=== PATIENT | male | born 1960 | race African-American/Black ===

== ENCOUNTER 2017-10-13 08:59 | Inpatient (IN) | payer OTHER ==
[2017-10-13 09:57] VITALS: BMI 22.3
--- NOTE | 2017-10-13 10:59 | HP ---
CIWA Score - CIWA Score Nausea/Vomitin-Mild Nausea/No Vomiting Muscle Tremors: 3 Anxiety: 3 Agitation: 4-Moderately Restless Paroxysmal Sweats: 3 Orientation: 0-Oriented Tacttile Disturbances: 0-None Auditory Disturbances: 0-None Visual Disturbances: 0-None Headache: 0-None Present CIWA-Ar Total Score: 14 Admission ROS BHS - HPI Chief Complaint: I am here to get some help and give myself a chance to start the new year better and healthy. Allergies/Adverse Reactions: Allergies Allergy/AdvReac Type Severity Reaction Status Date / Time Fish Containing Products Allergy Verified 10/13/17 09:33 History of Present Illness: pt is a 56yr old male with a history of alcohol dependence seeking detox for treatment. Exam Limitations: No Limitations - Ebola screening Have you traveled outside of the country in the last 21 days: No Have you had contact with anyone from an Ebola affected area: No Have you been sick,other than usual withdrawal symptoms: No Do you have a fever: No - Review of Systems Constitutional: Chills, Loss of Appetite, Changes in sleep, Unintentional Wgt. Loss EENT: reports: Blurred Vision, Dental Problems, Other (uses dentures but lost them) Respiratory: reports: No Symptoms reported Cardiac: reports: No Symptoms Reported GI: reports: Constipated, Diarrhea, Nausea, Poor Appetite, Poor Fluid Intake : reports: No Symptoms Reported Musculoskeletal: reports: Back Pain, Joint Pain Integumentary: reports: Flushing, Sweating Neuro: reports: Headache, Tingling, Tremors Endocrine: reports: Flushing, Intolerance to Cold, Intolerance to Heat Hematology: reports: No Symptoms Reported Psychiatric: reports: Judgement Intact, Mood/Affect Appropiate, Orientated x3, Agitated, Anxious Other Systems: Reviewed and Negative Patient History - Patient Medical History Hx Anemia: No Hx Asthma: No Hx Chronic Obstructive Pulmonary Disease (COPD): No Hx Cancer: No Hx Cardiac Disorders: No Hx Congestive Heart Failure: No Hx Hypertension: No Hx Hypercholesterolemia: No Hx Pacemaker: No HX Cerebrovascular Accident: No Hx Seizures: No Hx Dementia: No Hx Diabetes: Yes ([id number]) Hx Gastrointestinal Disorders: No Hx Liver Disease: No Hx Genitourinary Disorders: No Hx Sexually Transmitted Disorders: No Hx Renal Disease (ESRD): No Hx Thyroid Disease: No Hx Human Immunodeficiency Virus (HIV): No (negative) Hx Hepatitis C: No (negative) Hx Depression: Yes Hx Suicide Attempt: No (denies) Hx Bipolar Disorder: No Hx Schizophrenia: No - Patient Surgical History Past Surgical History: No Hx Neurologic Surgery: No Hx Cataract Extraction: No Hx Cardiac Surgery: No Hx Lung Surgery: No Hx Breast Surgery: No Hx Breast Biopsy: No Hx Abdominal Surgery: No Hx Appendectomy: No Hx Cholecystectomy: No Hx Genitourinary Surgery: No Hx Section: No Hx Orthopedic Surgery: No Anesthesia Reaction: No - PPD History Previous Implant?: Yes Documented Results: Negative w/o proof Implanted On Prior R Admission?: Yes PPD to be Administered?: Yes - Reproductive History Patient is a Female of Child Bearing Age (11 -55 yrs old): No - Smoking Cessation Smoking history: Current every day smoker Have you smoked in the past 12 months: Yes Aproximately how many cigarettes per day: 10 Cigars Per Day: 0 Hx Chewing Tobacco Use: No Initiated information on smoking cessation: Yes 'Breaking Loose' booklet given: 10/13/17 - Substance & Tx. History Hx Alcohol Use: Yes Substance Use Type: Alcohol Hx Substance Use Treatment: Yes (last detox [facility] 2015) - Substances Abused Alcohol Route: Oral Frequency: Daily Amount used: MALT LIQUOUR(1 quart) Age of first use: 16 Date of Last Use: 10/13/17 Heroin Route: Inhalation Frequency: Daily Amount used: $50 Age of first use: 30 Date of Last Use: 10/11/17 Family Disease History - Family Disease History Family Disease History: CA: Father (), Mother () Admission Physical Exam S - Vital Signs Vital Signs: Vital Signs - 24 hr 10/13/17 09:32 Temperature 96.2 F L Pulse Rate 73 Respiratory 20 Rate Blood Pressure 130/88 - Physical General Appearance: Yes: Appropriately Dressed, Moderate Distress, Tremorous, Irritable, Sweating, Anxious HEENTM: Yes: Hearing grossly Normal, Normal Voice, Rhinorrhea Respiratory: Yes: Lungs Clear, Normal Breath Sounds, No Respiratory Distress Neck: Yes: No masses,lesions,Nodules Breast: Yes: Within Normal Limits Cardiology: Yes: Regular Rhythm, Regular Rate, S1, S2 Abdominal: Yes: Normal Bowel Sounds, Non Tender, Soft Genitourinary: Yes: Within Normal Limits Back: Yes: Normal Inspection Musculoskeletal: Yes: full range of Motion Extremities: Yes: Normal Capillary Refill, Normal Inspection, Tremors Neurological: Yes: Fully Oriented, Alert, Normal Response Integumentary: Yes: Normal Color Lymphatic: Yes: Within Normal Limits - Diagnostic (1) Alcohol dependence with uncomplicated withdrawal Current Visit: Yes Status: Chronic (2) Nicotine dependence Current Visit: Yes Status: Chronic Qualifiers: Nicotine product type: cigarettes (3) Diabetes mellitus Current Visit: No Status: Chronic Qualifiers: Diabetes mellitus type: type 2 Diabetes mellitus complication status: without complication Diabetes mellitus custodial insulin use: without laser beam machine operator use Qualified Code(s): E11.9 - Type 2 diabetes mellitus without complications Cleared for Admission [facility] - Detox or Rehab [facility] Level of Care: Medically Managed Detox Regimen/Protocol: Librium [facility] Breath Alcohol Content Breath Alcohol Content: 0 Urine Drug Screen - Results Drug Screen Negative: Yes
[2017-10-13] MEDS ORDERED: NICOTINE POLACRILEX 4 MG GUM BC PRN (11:00)
[2017-10-13] MEDS ORDERED: MAGNESIUM CITRATE 300 ML BOTTLE PO PRN (11:00)
[2017-10-13] MEDS ORDERED: guaiFENesin/D-METHORPHAN HB 10 ML UNIT-DOSE CUPS PO PRN (11:00)
[2017-10-13] MEDS ORDERED: LOPERAMIDE HCL 2 MG CAPSULE PO PRN (11:00)
[2017-10-13] MEDS ORDERED: MAGNESIUM HYDROX 2400MG/30ML ORAL SUSPENSION 30 ML CUP PO PRN (11:00)
[2017-10-13] MEDS ORDERED: P-EPHED 60MG/TRIPROLIDI 2.5MG TABLET PO PRN (11:00)
[2017-10-13] MEDS ORDERED: MENTHOL/PHENOL 1 EACH UD MM PRN (11:00)
[2017-10-13] MEDS ORDERED: hydrOXYzine PAMOATE 50 MG CAPSULE (FP) PO PRN (11:00)
[2017-10-13] MEDS ORDERED: chlordiazePOXIDE HCL 25 MG CAPSULE PO ONE (11:00)
[2017-10-13] MEDS ORDERED: ACETAMINOPHEN 325 MG TABLET (FP) PO PRN (11:00)
[2017-10-13] MEDS ORDERED: chlordiazePOXIDE HCL 25 MG CAPSULE PO PRN (11:00)
[2017-10-13] MEDS ORDERED: IBUPROFEN 400 MG TABLET (FP) PO PRN (11:00)
[2017-10-13] MEDS ORDERED: MAG HYDROX/AL HYDROX/SIMETH 30 ML UNIT-DOSE CUP PO PRN (11:00)
[2017-10-13] MEDS ORDERED: chlordiazePOXIDE HCL 25 MG CAPSULE ONE (14:04)
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
--- NOTE | 2017-10-13 16:56 | EKG ---
Test Reason : Blood Pressure : / mmHG Vent. Rate : 070 BPM Atrial Rate : 070 BPM P-R Int : 152 ms QRS Dur : 088 ms QT Int : 398 ms P-R-T Axes : 080 059 057 degrees QTc Int : 429 ms NORMAL SINUS RHYTHM VOLTAGE CRITERIA FOR LEFT VENTRICULAR HYPERTROPHY ABNORMAL ECG NO PREVIOUS ECGS AVAILABLE Confirmed by DYLAN RIZZO MD ([id number]) on 10/13/2017 4:56:01 PM Referred By: Confirmed By:DYLAN RIZZO MD
[2017-10-13] MEDS: chlordiazePOXIDE HCL 25 MG CAPSULE PO SCH ×2 (18:09→22:25)
[2017-10-13 19:31] LABS: URINE APPEARANCE CLEAR; URINE BILIRUBIN NEGATIVE (NEGATIVE); URINE BLOOD NEGATIVE (NEGATIVE); URINE COLOR LTYELLOW; URINE GLUCOSE (UA) NEGATIVE (NEGATIVE); URINE KETONE NEGATIVE (NEGATIVE); URINE LEUK ESTERASE NEGATIVE (NEGATIVE); URINE NITRITE NEGATIVE (NEGATIVE); URINE PROTEIN NEGATIVE (NEGATIVE); URINE UROBILINOGEN NEGATIVE mg/dL (0.2-1.0)
[2017-10-13] MEDS: THIAMINE HCL 100 MG TABLET (FP) PO SCH (22:25)
[2017-10-13] MEDS: ZOLPIDEM TARTRATE 5 MG TABLET PO PRN (22:27)
[2017-10-13 22:39] LABS: URINE LEUK ESTERASE Negative (NEGATIVE)
[2017-10-14] MEDS: chlordiazePOXIDE HCL 25 MG CAPSULE PO SCH ×4 (05:37→22:25)
[2017-10-14] MEDS: PRENATAL VITAMINS W/ FOLIC ACID TABLET (FP) PO SCH (10:39)
[2017-10-14] MEDS: NICOTINE 21 MG/24 HOURS TOPICAL PATCH TD SCH (10:40)
[2017-10-14 11:29] LABS: MCH 28.4 pg (25.7-33.7); MCHC 31.5 g/dl (32.0-35.9); MEAN CELL VOLUME 89.9 fl (80-96); MEAN PLT VOLUME 10.1 fl (7.5-11.1); PLATELET COUNT 168 K/MM3 (134-434); WHITE BLOOD COUNT 4.8 K/mm3 (4.0-10.0)
[2017-10-14 11:38] LABS: ALBUMIN 3.2 g/dl (3.4-5.0); ALK PHOS 101 U/L (45-117); ANION GAP 5 (8-16); BILIRUBIN,TOTAL 0.2 mg/dL (0.2-1.0); CALCIUM 8.7 mg/dL (8.5-10.1); CO2 27 mmol/L (21-32); CREATININE 0.8 mg/dL (0.7-1.3); GLUCOSE,RANDOM 100 mg/dL (74-106); SGOT/AST 8 U/L (15-37); SGPT/ALT 12 U/L (12-78); TOT PROT 6.5 g/dl (6.4-8.2)
--- NOTE | 2017-10-14 16:23 | PN ---
[facility] CIWA - CIWA Score Nausea/Vomitin Muscle Tremors: 4-Moderate,w/Arms Extend Anxiety: 3 Agitation: 3 Paroxysmal Sweats: 3 Orientation: 0-Oriented Tacttile Disturbances: 1-Very Mild Itch/Numbness Auditory Disturbances: 0-None Visual Disturbances: 0-None Headache: 0-None Present CIWA-Ar Total Score: 17 S Progress Note (SOAP) Subjective: Sweating, tremor, chills, diarrhea Objective: 10/14/17 16:21 Last Vital Signs Temp Pulse Resp BP Pulse Ox 97.2 F L 67 16 147/94 10/14/17 14:11 10/14/17 14:11 10/14/17 14:11 10/14/17 14:11 Laboratory Tests 10/13/17 10/13/17 10/14/17 09:49 18:00 05:36 WBC RBC Hgb Hct MCV MCH MCHC RDW Plt Count MPV Sodium Potassium Chloride Carbon Dioxide Anion Gap BUN Creatinine Creat Clearance w eGFR POC Glucometer 113 107 Random Glucose Calcium Total Bilirubin AST ALT Alkaline Phosphatase Total Protein Albumin Urine Color Ltyellow Urine Appearance Clear Urine pH 6.0 Ur Specific [place] 1.016 Urine Protein Negative Urine Glucose (UA) Negative Urine Ketones Negative Urine Blood Negative Urine Nitrite Negative Urine Bilirubin Negative Urine Urobilinogen Negative Ur Leukocyte Esterase Negative RPR Titer 10/14/17 10/14/17 10/14/17 07:45 07:45 07:45 WBC 4.8 RBC 4.21 Hgb 11.9 Hct 37.9 MCV 89.9 MCH 28.4 MCHC 31.5 L RDW 15.0 Plt Count 168 MPV 10.1 Sodium 143 Potassium 4.0 Chloride 111 H Carbon Dioxide 27 Anion Gap 5 L BUN 14 Creatinine 0.8 Creat Clearance w eGFR > 60 POC Glucometer Random Glucose 100 Calcium 8.7 Total Bilirubin 0.2 AST 8 L D ALT 12 D Alkaline Phosphatase 101 D Total Protein 6.5 Albumin 3.2 L Urine Color Urine Appearance Urine pH Ur Specific [place] Urine Protein Urine Glucose (UA) Urine Ketones Urine Blood Urine Nitrite Urine Bilirubin Urine Urobilinogen Ur Leukocyte Esterase RPR Titer Nonreactive Labs noted Assessment: 10/14/17 16:22 Withdrawal symptoms Plan: Continue detox Encouraged to drink lots of water for hydration
[2017-10-14] MEDS: THIAMINE HCL 100 MG TABLET (FP) PO SCH (22:25)
[2017-10-14] MEDS: ZOLPIDEM TARTRATE 5 MG TABLET PO PRN (22:27)
[2017-10-15] MEDS: chlordiazePOXIDE HCL 25 MG CAPSULE PO SCH (05:34)
[2017-10-15] MEDS: NICOTINE 21 MG/24 HOURS TOPICAL PATCH TD SCH (10:25)
[2017-10-15] MEDS: PRENATAL VITAMINS W/ FOLIC ACID TABLET (FP) PO SCH (10:25)
--- NOTE | 2017-10-15 11:48 | PN ---
[facility] CIWA - CIWA Score Nausea/Vomitin-No Nausea/No Vomiting Muscle Tremors: 3 Anxiety: 4-Mod. Anxious/Guarded Agitation: 4-Moderately Restless Paroxysmal Sweats: 2 Orientation: 0-Oriented Tacttile Disturbances: 2-Mild Itch/Numbness/Burn Auditory Disturbances: 1-Very Mild Visual Disturbances: 0-None Headache: 0-None Present CIWA-Ar Total Score: 16 S Progress Note (SOAP) Subjective: Tremors, Anxious, Diarrhea. Objective: PT. A & O X 3, OBSERVED AMBULATING ON UNIT. NO ACUTE DISTRESS. 10/15/17 11:46 Vital Signs Temperature 96.8 F L 10/15/17 09:15 Pulse Rate 66 10/15/17 09:15 Respiratory Rate 18 10/15/17 09:15 Blood Pressure 141/88 10/15/17 09:15 O2 Sat by Pulse Oximetry (%) Laboratory Tests 10/13/17 10/13/17 10/14/17 09:49 18:00 05:36 WBC RBC Hgb Hct MCV MCH MCHC RDW Plt Count MPV Sodium Potassium Chloride Carbon Dioxide Anion Gap BUN Creatinine Creat Clearance w eGFR POC Glucometer 113 107 Random Glucose Calcium Total Bilirubin AST ALT Alkaline Phosphatase Total Protein Albumin Urine Color Ltyellow Urine Appearance Clear Urine pH 6.0 Ur Specific [place] 1.016 Urine Protein Negative Urine Glucose (UA) Negative Urine Ketones Negative Urine Blood Negative Urine Nitrite Negative Urine Bilirubin Negative Urine Urobilinogen Negative Ur Leukocyte Esterase Negative RPR Titer 10/14/17 10/14/17 10/14/17 07:45 07:45 07:45 WBC 4.8 RBC 4.21 Hgb 11.9 Hct 37.9 MCV 89.9 MCH 28.4 MCHC 31.5 L RDW 15.0 Plt Count 168 MPV 10.1 Sodium 143 Potassium 4.0 Chloride 111 H Carbon Dioxide 27 Anion Gap 5 L BUN 14 Creatinine 0.8 Creat Clearance w eGFR > 60 POC Glucometer Random Glucose 100 Calcium 8.7 Total Bilirubin 0.2 AST 8 L D ALT 12 D Alkaline Phosphatase 101 D Total Protein 6.5 Albumin 3.2 L Urine Color Urine Appearance Urine pH Ur Specific [place] Urine Protein Urine Glucose (UA) Urine Ketones Urine Blood Urine Nitrite Urine Bilirubin Urine Urobilinogen Ur Leukocyte Esterase RPR Titer Nonreactive 10/15/17 05:08 WBC RBC Hgb Hct MCV MCH MCHC RDW Plt Count MPV Sodium Potassium Chloride Carbon Dioxide Anion Gap BUN Creatinine Creat Clearance w eGFR POC Glucometer 89 Random Glucose Calcium Total Bilirubin AST ALT Alkaline Phosphatase Total Protein Albumin Urine Color Urine Appearance Urine pH Ur Specific [place] Urine Protein Urine Glucose (UA) Urine Ketones Urine Blood Urine Nitrite Urine Bilirubin Urine Urobilinogen Ur Leukocyte Esterase RPR Titer LABS NOTED. Assessment: 10/15/17 11:47 WITHDRAWAL SYMPTOMS. Plan: CONTINUE DETOX. PRN IMMDODIUM FOR DIARRHEA. INCREASE DAILY PO FLUID INTAKE.
[2017-10-15] MEDS ORDERED: INSULIN (NOVOLOG) ASPART 100 UNITS/ML 10ML VIAL ONE (12:19)
[2017-10-15] MEDS: chlordiazePOXIDE 5 MG CAPSULE PO SCH ×2 (16:46→22:23)
[2017-10-15] MEDS: ZOLPIDEM TARTRATE 5 MG TABLET PO PRN (22:23)
[2017-10-15] MEDS: THIAMINE HCL 100 MG TABLET (FP) PO SCH (22:23)
[2017-10-16] MEDS: chlordiazePOXIDE 5 MG CAPSULE PO SCH ×2 (06:37→10:29)
[2017-10-16] MEDS: NICOTINE 21 MG/24 HOURS TOPICAL PATCH TD SCH (10:29)
[2017-10-16] MEDS: PRENATAL VITAMINS W/ FOLIC ACID TABLET (FP) PO SCH (10:29)
--- NOTE | 2017-10-16 12:21 | PN ---
S Progress Note (SOAP) Subjective: Diarrhea, Anxious. Objective: PT. A & O X 3, OBSERVED AMBULATING ON UNIT. NO ACUTE DISTRESS. 10/16/17 12:19 Vital Signs Temperature 96.8 F L 10/16/17 09:24 Pulse Rate 65 10/16/17 09:24 Respiratory Rate 17 10/16/17 09:24 Blood Pressure 116/82 10/16/17 09:24 O2 Sat by Pulse Oximetry (%) Laboratory Tests 10/13/17 10/13/17 10/14/17 09:49 18:00 05:36 WBC RBC Hgb Hct MCV MCH MCHC RDW Plt Count MPV Sodium Potassium Chloride Carbon Dioxide Anion Gap BUN Creatinine Creat Clearance w eGFR POC Glucometer 113 107 Random Glucose Calcium Total Bilirubin AST ALT Alkaline Phosphatase Total Protein Albumin Urine Color Ltyellow Urine Appearance Clear Urine pH 6.0 Ur Specific [place] 1.016 Urine Protein Negative Urine Glucose (UA) Negative Urine Ketones Negative Urine Blood Negative Urine Nitrite Negative Urine Bilirubin Negative Urine Urobilinogen Negative Ur Leukocyte Esterase Negative RPR Titer 10/14/17 10/14/17 10/14/17 07:45 07:45 07:45 WBC 4.8 RBC 4.21 Hgb 11.9 Hct 37.9 MCV 89.9 MCH 28.4 MCHC 31.5 L RDW 15.0 Plt Count 168 MPV 10.1 Sodium 143 Potassium 4.0 Chloride 111 H Carbon Dioxide 27 Anion Gap 5 L BUN 14 Creatinine 0.8 Creat Clearance w eGFR > 60 POC Glucometer Random Glucose 100 Calcium 8.7 Total Bilirubin 0.2 AST 8 L D ALT 12 D Alkaline Phosphatase 101 D Total Protein 6.5 Albumin 3.2 L Urine Color Urine Appearance Urine pH Ur Specific [place] Urine Protein Urine Glucose (UA) Urine Ketones Urine Blood Urine Nitrite Urine Bilirubin Urine Urobilinogen Ur Leukocyte Esterase RPR Titer Nonreactive 10/15/17 10/16/17 05:08 05:44 WBC RBC Hgb Hct MCV MCH MCHC RDW Plt Count MPV Sodium Potassium Chloride Carbon Dioxide Anion Gap BUN Creatinine Creat Clearance w eGFR POC Glucometer 89 97 Random Glucose Calcium Total Bilirubin AST ALT Alkaline Phosphatase Total Protein Albumin Urine Color Urine Appearance Urine pH Ur Specific [place] Urine Protein Urine Glucose (UA) Urine Ketones Urine Blood Urine Nitrite Urine Bilirubin Urine Urobilinogen Ur Leukocyte Esterase RPR Titer LABS NOTED. Assessment: 10/16/17 12:19 WITHDRAWAL SYMPTOMS. Plan: CONTINUE DETOX. INCREASE DAILY PO FLUID INTAKE. PRN IMMODIUM FOR DIARRHEA.
[2017-10-16] MEDS: chlordiazePOXIDE HCL 10 MG CAPSULE PO SCH ×2 (17:01→22:14)
[2017-10-16] MEDS: THIAMINE HCL 100 MG TABLET (FP) PO SCH (22:14)
[2017-10-16] MEDS: ZOLPIDEM TARTRATE 5 MG TABLET PO PRN (22:14)
[2017-10-17] MEDS: chlordiazePOXIDE HCL 10 MG CAPSULE PO SCH ×2 (05:31→11:01)
[2017-10-17 09:29] VITALS: BP 129/88; PULSE 72; TEMP 97.8
[2017-10-17] MEDS: PRENATAL VITAMINS W/ FOLIC ACID TABLET (FP) PO SCH (11:01)
[2017-10-17] MEDS: NICOTINE 21 MG/24 HOURS TOPICAL PATCH TD SCH (11:01)
--- NOTE | 2017-10-17 12:34 | DS ---
[facility] Detox Discharge Summary Admission Date: 10/13/17 Discharge Date: 10/17/17 - History Present History: Alcohol Dependence, Opioid Dependence Additional Comments: PATIENT GO[facility] [place] [facility] [place]C[facility]. PATIENT WAS DISCHARGED FROM DETOX UNIT IN STABLE MEDICAL CONDITION. Pertinent Past History: Type II DM, Depression, Nicotine Dependence. - Physical Exam Results Vital Signs: Vital Signs Temperature 97.8 F 10/17/17 09:28 Pulse Rate 72 10/17/17 09:28 Respiratory Rate 18 10/17/17 09:28 Blood Pressure 129/88 10/17/17 09:28 O2 Sat by Pulse Oximetry (%) Pertinent Admission Physical Exam Findings: WITHDRAWAL SYMPTOMS. Laboratory Tests 10/13/17 10/13/17 10/14/17 09:49 18:00 05:36 WBC RBC Hgb Hct MCV MCH MCHC RDW Plt Count MPV Sodium Potassium Chloride Carbon Dioxide Anion Gap BUN Creatinine Creat Clearance w eGFR POC Glucometer 113 107 Random Glucose Calcium Total Bilirubin AST ALT Alkaline Phosphatase Total Protein Albumin Urine Color Ltyellow Urine Appearance Clear Urine pH 6.0 Ur Specific [place] 1.016 Urine Protein Negative Urine Glucose (UA) Negative Urine Ketones Negative Urine Blood Negative Urine Nitrite Negative Urine Bilirubin Negative Urine Urobilinogen Negative Ur Leukocyte Esterase Negative RPR Titer 10/14/17 10/14/17 10/14/17 07:45 07:45 07:45 WBC 4.8 RBC 4.21 Hgb 11.9 Hct 37.9 MCV 89.9 MCH 28.4 MCHC 31.5 L RDW 15.0 Plt Count 168 MPV 10.1 Sodium 143 Potassium 4.0 Chloride 111 H Carbon Dioxide 27 Anion Gap 5 L BUN 14 Creatinine 0.8 Creat Clearance w eGFR > 60 POC Glucometer Random Glucose 100 Calcium 8.7 Total Bilirubin 0.2 AST 8 L D ALT 12 D Alkaline Phosphatase 101 D Total Protein 6.5 Albumin 3.2 L Urine Color Urine Appearance Urine pH Ur Specific [place] Urine Protein Urine Glucose (UA) Urine Ketones Urine Blood Urine Nitrite Urine Bilirubin Urine Urobilinogen Ur Leukocyte Esterase RPR Titer Nonreactive 10/15/17 10/16/17 10/17/17 05:08 05:44 05:30 WBC RBC Hgb Hct MCV MCH MCHC RDW Plt Count MPV Sodium Potassium Chloride Carbon Dioxide Anion Gap BUN Creatinine Creat Clearance w eGFR POC Glucometer 89 97 89 Random Glucose Calcium Total Bilirubin AST ALT Alkaline Phosphatase Total Protein Albumin Urine Color Urine Appearance Urine pH Ur Specific [place] Urine Protein Urine Glucose (UA) Urine Ketones Urine Blood Urine Nitrite Urine Bilirubin Urine Urobilinogen Ur Leukocyte Esterase RPR Titer LABS NOTED. - Treatment Hospital Course: Detox Protocol Followed, Detoxed Safely, Responded well, Discharged Condition Good Patient has Accepted a Rehab Referral to: PT GOING TO '[facility] [place] - Medication Discharge Medications: Ambulatory Orders Cholecalciferol (Vitamin D3) [Vitamin D3 -] 1,000 unit PO DAILY 07/02/15 Metformin HCl [Glucophage -] 850 mg PO DAILY 07/02/15 - Diagnosis (1) Alcohol dependence with uncomplicated withdrawal Current Visit: Yes Status: Acute (2) Nicotine dependence Current Visit: Yes Status: Chronic Qualifiers: Nicotine product type: cigarettes Substance use status: uncomplicated Qualified Code(s): F17.210 - Nicotine dependence, cigarettes, uncomplicated (3) Diabetes mellitus Current Visit: Yes Status: Chronic Qualifiers: Diabetes mellitus type: type 2 Diabetes mellitus complication status: without complication Diabetes mellitus fdc insulin use: without fdc use Qualified Code(s): E11.9 - Type 2 diabetes mellitus without complications (4) Substance induced mood disorder Current Visit: Yes Status: Acute (5) Substance-induced sleep disorder Current Visit: Yes Status: Acute (6) Opioid dependence Current Visit: Yes Status: Acute Qualifiers: Substance use status: uncomplicated Qualified Code(s): F11.20 - Opioid dependence, uncomplicated - AMA Did Patient Leave Against Medical Advice: No
== END 2017-10-17 10:10 | disposition home or self-care (01) | DRG 773 ==
LOC: YASAS 08:59 → Y3N 11:03
PROVIDERS: ADMIT Internal Medicine; ATTEND Internal Medicine
PROC: HZ2ZZZZ Detoxification Services for Substance Abuse Treatment (ICD-10-PCS; principal; 2017-10-13)
DX: F10.230 Alcohol dependence with withdrawal, uncomplicated (principal); F11.20 Opioid dependence, uncomplicated; F17.210 Nicotine dependence, cigarettes, uncomplicated; F19.24 Other psychoactive substance dependence with psychoactive substance-induced mood disorder; F19.282 Other psychoactive substance dependence with psychoactive substance-induced sleep disorder; F32.9 Major depressive disorder, single episode, unspecified; E11.9 Type 2 diabetes mellitus without complications; Z79.84 Long term (current) use of oral hypoglycemic drugs; Z91.013 Allergy to seafood
CPT/HCPCS: 36415; 80053; 81003; 85027; 86593; 93005; 93010

== ENCOUNTER 2018-06-15 09:27 | Inpatient (IN) | payer OTHER ==
--- NOTE | 2018-06-15 11:29 | HP ---
COWS - Scale Resting Pulse: 0= [place] 80 or Below Sweatin= Chills/Flushing Restless Observation: 1= Difficult to Sit Still Pupil Size: 0= Normal to Room Light Bone or Joint Aches: 1= Mild Discomfort Runny Nose/ Eye Tearin= Nasal Congestion GI Upset > 30mins: 2= Nausea/Diarrhea Tremor Observation: 2= Slight Tremor Visible Yawning Observation: 2= >3x During Session Anxiety or Irritability: 1=Feels Anxious/Irritable Goose Flesh Skin: 3=Piloerection COWS Score: 14 Admission ROS S - HPI Chief Complaint: "I am here for detox" Allergies/Adverse Reactions: Allergies Allergy/AdvReac Type Severity Reaction Status Date / Time Fish Containing Products Allergy Verified 06/15/18 10:42 History of Present Illness: 57 y/o male presents for detox from heroin and crack. Pt was last here last year, states he has been sober since then because he was in retirement and for about 6 months after leaving retirement before "I went back out". Hx of DM ("I take metformin on and off when I need it"). Denies any psych hx but states "I think I have Anxiety". Denies past nor current SI/HI. Exam Limitations: No Limitations - Ebola screening Have you traveled outside of the country in the last 21 days: No (N) Have you had contact with anyone from an Ebola affected area: No Have you been sick,other than usual withdrawal symptoms: No Do you have a fever: No - Review of Systems Constitutional: Changes in sleep, Unintentional Wgt. Loss EENT: reports: Blurred Vision (wears reading glasses), Dental Problems (No teeth. Has on lower dentures but not the upper ones) Respiratory: reports: No Symptoms reported Cardiac: reports: No Symptoms Reported GI: reports: Diarrhea, Poor Appetite : reports: No Symptoms Reported Musculoskeletal: reports: Back Pain (lower pain) Integumentary: reports: No Symptoms Reported Neuro: reports: No Symptoms reported Endocrine: reports: No Symptoms Reported Hematology: reports: No Symptoms Reported Psychiatric: reports: Mood/Affect Appropiate, Orientated x3, Anxious Patient History - Patient Medical History Hx Anemia: No Hx Asthma: No Hx Chronic Obstructive Pulmonary Disease (COPD): No Hx Cancer: No Hx Cardiac Disorders: No Hx Congestive Heart Failure: No Hx Hypertension: No Hx Hypercholesterolemia: No Hx Pacemaker: No HX Cerebrovascular Accident: No Hx Seizures: No Hx Dementia: No Hx Diabetes: Yes (BGM-113, states he is borderline - takes Metformin on and off) Hx Gastrointestinal Disorders: No Hx Liver Disease: No Hx Genitourinary Disorders: No Hx Sexually Transmitted Disorders: No Hx Renal Disease (ESRD): No Hx Thyroid Disease: No Hx Human Immunodeficiency Virus (HIV): No (negative) Hx Hepatitis C: No (negative) Hx Depression: Yes Hx Suicide Attempt: No (denies) Hx Bipolar Disorder: No Hx Schizophrenia: No - Patient Surgical History Past Surgical History: No Hx Neurologic Surgery: No Hx Cataract Extraction: No Hx Cardiac Surgery: No Hx Lung Surgery: No Hx Breast Surgery: No Hx Breast Biopsy: No Hx Abdominal Surgery: No Hx Appendectomy: No Hx Cholecystectomy: No Hx Genitourinary Surgery: No Hx Section: No Hx Orthopedic Surgery: No Anesthesia Reaction: No - PPD History Previous Implant?: Yes Documented Results: Negative w/proof Implanted On Prior [facility] Admission?: Yes Date: 10/15/17 PPD to be Administered?: No - Reproductive History Patient is a Female of Child Bearing Age (11 -55 yrs old): No - Smoking Cessation Smoking history: Current every day smoker Have you smoked in the past 12 months: Yes Aproximately how many cigarettes per day: 10 Cigars Per Day: 0 Hx Chewing Tobacco Use: No Initiated information on smoking cessation: Yes 'Breaking Loose' booklet given: 06/15/18 - Substance & Tx. History Hx Alcohol Use: Yes (On and off, not heavy) Hx Substance Use: Yes Substance Use Type: Cocaine, Heroin Hx Substance Use Treatment: Yes - Substances Abused Heroin Route: Inhalation Frequency: Daily Amount used: 10 bags Age of first use: 30 Date of Last Use: 06/14/18 Cocaine Route: Smoking Frequency: Daily Amount used: $50 Age of first use: 30 Date of Last Use: 06/14/18 Alcohol Route: Oral Frequency: Daily Amount used: Liquor 1 quart Age of first use: 16 Date of Last Use: 06/14/18 Family Disease History - Family Disease History Family Disease History: CA: Father (), Mother () Admission Physical Exam BHS - Vital Signs Vital Signs: Vital Signs - 24 hr 06/15/18 10:07 Temperature 97.8 F Pulse Rate 61 Respiratory 19 Rate Blood Pressure 124/76 - Physical General Appearance: Yes: Mild Distress, Moderate Distress HEENTM: Yes: Nasal Congestion Respiratory: Yes: Lungs Clear, No Respiratory Distress Neck: Yes: No masses,lesions,Nodules, Trachea in good position Breast: Yes: Breast Exam Deferred Cardiology: Yes: Regular Rate Abdominal: Yes: Non Tender, Soft Back: Yes: Normal Inspection Musculoskeletal: Yes: full range of Motion Extremities: Yes: Normal Capillary Refill Neurological: Yes: Alert, Motor Strength 5/5 Integumentary: Yes: Normal Color Lymphatic: Yes: Within Normal Limits - Diagnostic (1) Opioid dependence with uncomplicated intoxication Current Visit: Yes Status: Acute (2) Alcohol dependence with uncomplicated withdrawal Current Visit: Yes Status: Acute (3) Nicotine dependence Current Visit: Yes Status: Chronic Qualifiers: Nicotine product type: cigarettes Substance use status: uncomplicated Qualified Code(s): F17.210 - Nicotine dependence, cigarettes, uncomplicated (4) Diabetes mellitus type 2, controlled, without complications Current Visit: No Status: Chronic (5) Weight loss Current Visit: Yes Status: Chronic (6) Anxiety Current Visit: Yes Status: Suspected Cleared for Admission [facility] - Detox or Rehab [facility] Level of Care: Medically Managed Detox Regimen/Protocol: Methadone/Librium S Breath Alcohol Content Breath Alcohol Content: 0 Urine Drug Screen - Results Drug Screen Negative: No Urine Drug Screen Results: [place]-Cocaine, OPI-Opiates, MTD-Methadone
[2018-06-15] MEDS ORDERED: chlordiazePOXIDE HCL 25 MG CAPSULE PO PRN (11:46)
[2018-06-15] MEDS ORDERED: NICOTINE POLACRILEX 2 MG GUM BUC PRN (11:46)
[2018-06-15] MEDS ORDERED: P-EPHED 60MG/TRIPROLIDI 2.5MG TABLET PO PRN (11:46)
[2018-06-15] MEDS ORDERED: IBUPROFEN 400 MG TABLET (FP) PO PRN (11:46)
[2018-06-15] MEDS ORDERED: MAGNESIUM CITRATE 300 ML BOTTLE PO PRN (11:46)
[2018-06-15] MEDS ORDERED: MENTHOL/PHENOL 1 EACH UD MM PRN (11:46)
[2018-06-15] MEDS ORDERED: guaiFENesin/D-METHORPHAN HB 10 ML UNIT-DOSE CUPS PO PRN (11:46)
[2018-06-15] MEDS ORDERED: ACETAMINOPHEN 325 MG TABLET (FP) PO PRN (11:46)
[2018-06-15] MEDS ORDERED: LOPERAMIDE HCL 2 MG CAPSULE PO PRN (11:46)
[2018-06-15] MEDS ORDERED: MAGNESIUM HYDROX 2400MG/30ML ORAL SUSPENSION 30 ML CUP PO PRN (11:46)
[2018-06-15] MEDS ORDERED: MAG HYDROX/AL HYDROX/SIMETH 30 ML UNIT-DOSE CUP PO PRN (11:46)
[2018-06-15] MEDS ORDERED: METHADONE HCL 10 MG TABLET (FOR DETOX USE ONLY) PO ONE ×2 (12:45→23:00)
[2018-06-15] MEDS: NICOTINE 14 MG/24 HOURS TOPICAL PATCH TD SCH (13:00)
[2018-06-15] MEDS: chlordiazePOXIDE HCL 25 MG CAPSULE PO SCH ×2 (17:36→22:20)
[2018-06-15 20:12] LABS: URINE APPEARANCE TURBID; URINE BILIRUBIN NEGATIVE (<2.0 mg/dL); URINE COLOR AMBER; URINE GLUCOSE (UA) NEGATIVE (NEGATIVE); URINE KETONE NEGATIVE (NEGATIVE); URINE LEUK ESTERASE NEGATIVE (NEGATIVE); URINE NITRITE NEGATIVE (NEGATIVE); URINE PROTEIN NEGATIVE (NEGATIVE)
--- NOTE | 2018-06-15 21:53 | EKG ---
Test Reason : Blood Pressure : / mmHG Vent. Rate : 052 BPM Atrial Rate : 052 BPM P-R Int : 150 ms QRS Dur : 098 ms QT Int : 446 ms P-R-T Axes : 077 063 056 degrees QTc Int : 414 ms SINUS BRADYCARDIA MODERATE VOLTAGE CRITERIA FOR LVH, MAY BE NORMAL VARIANT BORDERLINE ECG WHEN COMPARED WITH ECG OF 13-OCT-2017 15:00, NO SIGNIFICANT CHANGE WAS FOUND Confirmed by MATTHIAS CASTILLO, DYLAN ([id number]) on 06/15/2018 9:53:19 PM Referred By: Confirmed By:DYLAN RIZZO MD
[2018-06-15] MEDS ORDERED: MELATONIN 5 MG TABLETS PO PRN (22:00)
[2018-06-15] MEDS: THIAMINE HCL 100 MG TABLET (FP) PO SCH (22:20)
[2018-06-16] MEDS: chlordiazePOXIDE HCL 25 MG CAPSULE PO SCH ×4 (06:51→22:08)
[2018-06-16] MEDS ORDERED: METHADONE HCL 10 MG TABLET (FOR DETOX USE ONLY) PO SCH (10:00)
[2018-06-16 10:03] LABS: HEMATOCRIT 36.1 % (35.4-49); HEMOGLOBIN 11.9 GM/dL (11.7-16.9); MCH 29.7 pg (25.7-33.7); MCHC 32.8 g/dl (32.0-35.9); MEAN CELL VOLUME 90.6 fl (80-96); MEAN PLT VOLUME 10.3 fl (7.5-11.1); PLATELET COUNT 170 K/MM3 (134-434); RBC 3.99 M/mm3 (4.00-5.60); RDW 13.8 % (11.9-15.9); WHITE BLOOD COUNT 3.9 K/mm3 (4.0-10.0)
[2018-06-16] MEDS: PRENATAL VITAMINS W/ FOLIC ACID TABLET (FP) PO SCH (10:06)
[2018-06-16] MEDS: NICOTINE 14 MG/24 HOURS TOPICAL PATCH TD SCH (10:08)
[2018-06-16 10:16] LABS: CHLORIDE 109 mmol/L (98-107); POTASSIUM 4.2 mmol/L (3.5-5.1); SODIUM 144 mmol/L (136-145)
[2018-06-16 10:25] LABS: ALK PHOS 77 U/L (45-117); ANION GAP 7 MMOL/L (8-16); BLOOD UREA NITROGEN 20 mg/dL (7-18); CALCIUM 8.8 mg/dL (8.5-10.1); CO2 28 mmol/L (21-32); CREATININE 0.8 mg/dL (0.7-1.3); GLUCOSE,RANDOM 89 mg/dL (74-106); SGOT/AST 16 U/L (15-37); SGPT/ALT 17 U/L (12-78); TOT PROT 6.2 g/dl (6.4-8.2)
[2018-06-16 10:27] LABS: BILIRUBIN,TOTAL < 0.1 mg/dL (0.2-1.0)
--- NOTE | 2018-06-16 13:03 | CONSULT ---
[facility] Psychiatric Consult - Data Date of interview: 06/16/18 Admission source: [facility] Identifying data: Readmission to [facility] for this 57 y/o AA male seeking detox treatment on for heroin,cocaine (crack) and alcohol dependence.Patient is ,a father of three,homeless,unemployed and supported on Public Assistance. Substance Abuse History: Confirmed by patient in this interview.Smoking history : Current every day smoker. Have you smoked in the past 12 months: Yes. Aproximately how many cigarettes per day: 10. Cigars Per Day: 0. Hx Chewing Tobacco Use: No. Initiated information on smoking cessation: Yes. 'Breaking Loose' booklet given: 06/15/18. - Substance & Tx. History. Hx Alcohol Use: Yes (On and off, not heavy). Hx Substance Use: Yes. Substance Use Type: Cocaine, Heroin. Hx Substance Use Treatment: Yes. - Substances Abused. Heroin. Route: Inhalation. Frequency: Daily. Amount used: 10 bags. Age of first use: 30. Date of Last Use: 06/14/18. Cocaine. Route: Smoking. Frequency: Daily. Amount used: $50. Age of first use: 30. Date of Last Use: 06/14/18. Alcohol. Route: Oral. Frequency: Daily. Amount used: Liquor 1 quart. Age of first use: 16. Date of Last Use: 06/14/18 Medical History: Diabetes mellitus. Psychiatric History: No reported history of psychiatric hospitalizations.Patient states that he was diagnosed with Bipolar Disorder and medicated with clonazepam,xanax,seroquel and abilify at different periods over the years.Mr Schneider is known to Dr Staples from the [facility] in the [place].Questionable adherence to psychiatric OPD care.Patient recognizes that he has not taken his medications " for a couple of weeks." No history of suicide attempts. Physical/Sexual Abuse/Trauma History: Patient denies. Additional Comment: Urine Drug Screen Results: [place]-Cocaine, OPI-Opiates, MTD- Methadone.Noted. Mental Status Exam - Mental Status Exam Alert and Oriented to: Time, Place, Person Cognitive Function: Good Patient Appearance: Well Groomed (edentulous) Mood: Nervous, Irritable Affect: Mood Congruent Patient Behavior: Fatigued, Cooperative Speech Pattern: Clear Voice Loudness: Normal Thought Process: Intact, Goal Oriented Thought Disorder: Not Present Hallucinations: Denies Suicidal Ideation: Denies Homicidal Ideation: Denies Insight/Judgement: Poor Sleep: Poorly, Difficulty falling asleep Appetite: Good Muscle strength/Tone: Normal Gait/Station: Normal Psychiatric Findings - Problem List ([place] 1, 2,3) (1) Alcohol dependence with uncomplicated withdrawal Current Visit: Yes Status: Acute (2) Cocaine dependence Current Visit: Yes Status: Acute (3) Opioid dependence with uncomplicated intoxication Current Visit: Yes Status: Acute (4) Nicotine dependence Current Visit: Yes Status: Acute Qualifiers: Nicotine product type: cigarettes Substance use status: uncomplicated Qualified Code(s): F17.210 - Nicotine dependence, cigarettes, uncomplicated (5) Substance induced mood disorder Current Visit: Yes Status: Acute (6) Insomnia Current Visit: Yes Status: Acute - Initial Treatment Plan Initial Treatment Plan: Psychoeducation.Sleep hygiene.Detoxification in progress." Keep your abilify if you don't give me my xanax." Mr Schneider declines to resume aripriprazole if not prescribed alprazolam at the same time.Made aware of risks taken by this decision.Insomnia is addressed with zolipdem 5 mg po hs prn (patient's request).Patient is informed of potential for parasomnias.Observation.
--- NOTE | 2018-06-16 13:12 | PN ---
S CIWA - CIWA Score Nausea/Vomitin Muscle Tremors: 4-Moderate,w/Arms Extend Anxiety: 3 Agitation: 2 Paroxysmal Sweats: 3 Orientation: 0-Oriented Tacttile Disturbances: 0-None Auditory Disturbances: 0-None Visual Disturbances: 0-None Headache: 0-None Present CIWA-Ar Total Score: 14 BHS COWS - Scale Resting Pulse: 0= [place] 80 or Below Sweatin=Flushed/Facial Moisture Restless Observation: 0= Sits Still Pupil Size: 0= Normal to Room Light Bone or Joint Aches: 1= Mild Discomfort Runny Nose/ Eye Tearin= Runny Nose/Eyes GI Upset > 30mins: 2= Nausea/Diarrhea Tremor Observation of Outstretched Hands: 2= Slight Tremor Visible Yawning Observation: 1= 1-2x During Session Anxiety or Irritability: 1=Feels Anxious/Irritable Goose Flesh Skin: 0=Smooth Skin COWS Score: 11 S Progress Note (SOAP) Subjective: Diarrhea Sleep disturbance Sweats Objective: 06/16/18 13:10 Sleeping in bed. arousable to verbal stimuli Vital Signs Temperature 97.6 F 06/16/18 10:00 Pulse Rate 53 L 06/16/18 10:00 Respiratory Rate 20 06/16/18 10:00 Blood Pressure 130/81 06/16/18 10:00 O2 Sat by Pulse Oximetry (%) Laboratory Last Values WBC 3.9 K/mm3 (4.0-10.0) L 06/16/18 07:00 RBC 3.99 M/mm3 (4.00-5.60) L 06/16/18 07:00 Hgb 11.9 GM/dL (11.7-16.9) 06/16/18 07:00 Hct 36.1 % (35.4-49) 06/16/18 07:00 MCV 90.6 fl (80-96) 06/16/18 07:00 MCH 29.7 pg (25.7-33.7) 06/16/18 07:00 MCHC 32.8 g/dl (32.0-35.9) 06/16/18 07:00 RDW 13.8 % (11.9-15.9) 06/16/18 07:00 Plt Count 170 K/MM3 (134-434) 06/16/18 07:00 MPV 10.3 fl (7.5-11.1) 06/16/18 07:00 Sodium 144 mmol/L (136-145) 06/16/18 07:00 Potassium 4.2 mmol/L (3.5-5.1) 06/16/18 07:00 Chloride 109 mmol/L (98-107) H 06/16/18 07:00 Carbon Dioxide 28 mmol/L (21-32) 06/16/18 07:00 Anion Gap 7 MMOL/L (8-16) L 06/16/18 07:00 BUN 20 mg/dL (7-18) H 06/16/18 07:00 Creatinine 0.8 mg/dL (0.7-1.3) 06/16/18 07:00 Creat Clearance w eGFR > 60 (>60) 06/16/18 07:00 POC Glucometer 105 UNITS (80-120) 06/16/18 06:37 Random Glucose 89 mg/dL (74-106) 06/16/18 07:00 Calcium 8.8 mg/dL (8.5-10.1) 06/16/18 07:00 Total Bilirubin < 0.1 mg/dL (0.2-1.0) L 06/16/18 07:00 AST 16 U/L (15-37) D 06/16/18 07:00 ALT 17 U/L (12-78) D 06/16/18 07:00 Alkaline Phosphatase 77 U/L (45-117) 06/16/18 07:00 Total Protein 6.2 g/dl (6.4-8.2) L 06/16/18 07:00 Albumin 3.0 g/dl (3.4-5.0) L 06/16/18 07:00 Urine Color [place] 06/15/18 15:55 Urine Appearance Turbid 06/15/18 15:55 Urine pH 6.0 (5.0-8.0) 06/15/18 15:55 Ur Specific [place] 1.027 (1.001-1.035) 06/15/18 15:55 Urine Protein Negative (NEGATIVE) 06/15/18 15:55 Urine Glucose (UA) Negative (NEGATIVE) 06/15/18 15:55 Urine Ketones Negative (NEGATIVE) 06/15/18 15:55 Urine Blood Negative (NEGATIVE) 06/15/18 15:55 Urine Nitrite Negative (NEGATIVE) 06/15/18 15:55 Urine Bilirubin Negative (<2.0 mg/dL) 06/15/18 15:55 Urine Urobilinogen 2.0 mg/dL (0.2-1.0) 06/15/18 15:55 Ur Leukocyte Esterase Negative (NEGATIVE) 06/15/18 15:55 RPR Titer Nonreactive (NONREACTIVE) 06/16/18 07:00 labs noted Assessment: 06/16/18 13:12 withdrawal sx Plan: continue detox Increase water hydration
[2018-06-16] MEDS ORDERED: ZOLPIDEM TARTRATE 5 MG TABLET PO PRN (22:00)
[2018-06-16] MEDS: THIAMINE HCL 100 MG TABLET (FP) PO SCH (22:08)
[2018-06-17] MEDS: chlordiazePOXIDE HCL 25 MG CAPSULE PO SCH ×2 (05:12→10:27)
[2018-06-17] MEDS: NICOTINE 14 MG/24 HOURS TOPICAL PATCH TD SCH (10:27)
[2018-06-17] MEDS: METHADONE HCL 5 MG TABLET (FOR DETOX USE ONLY) PO SCH (10:27)
[2018-06-17] MEDS: PRENATAL VITAMINS W/ FOLIC ACID TABLET (FP) PO SCH (10:27)
--- NOTE | 2018-06-17 13:14 | PN ---
[facility] CIWA - CIWA Score Nausea/Vomitin-No Nausea/No Vomiting Muscle Tremors: 3 Anxiety: 3 Agitation: 2 Paroxysmal Sweats: 3 Orientation: 0-Oriented Tacttile Disturbances: 2-Mild Itch/Numbness/Burn Auditory Disturbances: 2-Mild Harshness/Frighten Visual Disturbances: 0-None Headache: 0-None Present CIWA-Ar Total Score: 15 S COWS - Scale Resting Pulse: 0= [place] 80 or Below Sweatin= Chills/Flushing Restless Observation: 1= Difficult to Sit Still Pupil Size: 0= Normal to Room Light Bone or Joint Aches: 2= Severe Diffuse Aches Runny Nose/ Eye Tearin= Nasal Congestion GI Upset > 30mins: 0= None Tremor Observation of Outstretched Hands: 0= None Yawning Observation: 1= 1-2x During Session Anxiety or Irritability: 2=Irritable/Anxious Goose Flesh Skin: 3=Piloerection COWS Score: 11 S Progress Note (SOAP) Subjective: Sweating, Body Aches, Interrupted Sleep, Fatigue. Objective: PATIENT A & O X 2 (UNCERTAIN ABOUT CURRENT DAY / DATE). PATIENT OBSERVED AMBULATING ON UNIT. NO ACUTE DISTRESS. 06/17/18 13:16 Vital Signs Temperature 97.9 F 06/17/18 13:01 Pulse Rate 73 06/17/18 13:01 Respiratory Rate 18 06/17/18 13:01 Blood Pressure 112/73 06/17/18 13:01 O2 Sat by Pulse Oximetry (%) Laboratory Tests 06/15/18 06/15/18 06/16/18 10:29 15:55 06:37 WBC RBC Hgb Hct MCV MCH MCHC RDW Plt Count MPV Sodium Potassium Chloride Carbon Dioxide Anion Gap BUN Creatinine Creat Clearance w eGFR POC Glucometer 119 105 Random Glucose Calcium Total Bilirubin AST ALT Alkaline Phosphatase Total Protein Albumin Urine Color Angelia Urine Appearance Turbid Urine pH 6.0 Ur Specific [place] 1.027 Urine Protein Negative Urine Glucose (UA) Negative Urine Ketones Negative Urine Blood Negative Urine Nitrite Negative Urine Bilirubin Negative Urine Urobilinogen 2.0 Ur Leukocyte Esterase Negative RPR Titer 06/16/18 06/16/18 06/16/18 07:00 07:00 07:00 WBC 3.9 L RBC 3.99 L Hgb 11.9 Hct 36.1 MCV 90.6 MCH 29.7 MCHC 32.8 RDW 13.8 Plt Count 170 MPV 10.3 Sodium 144 Potassium 4.2 Chloride 109 H Carbon Dioxide 28 Anion Gap 7 L BUN 20 H Creatinine 0.8 Creat Clearance w eGFR > 60 POC Glucometer Random Glucose 89 Calcium 8.8 Total Bilirubin < 0.1 L AST 16 D ALT 17 D Alkaline Phosphatase 77 Total Protein 6.2 L Albumin 3.0 L Urine Color Urine Appearance Urine pH Ur Specific [place] Urine Protein Urine Glucose (UA) Urine Ketones Urine Blood Urine Nitrite Urine Bilirubin Urine Urobilinogen Ur Leukocyte Esterase RPR Titer Nonreactive 06/16/18 06/17/18 16:30 05:11 WBC RBC Hgb Hct MCV MCH MCHC RDW Plt Count MPV Sodium Potassium Chloride Carbon Dioxide Anion Gap BUN Creatinine Creat Clearance w eGFR POC Glucometer 118 132 Random Glucose Calcium Total Bilirubin AST ALT Alkaline Phosphatase Total Protein Albumin Urine Color Urine Appearance Urine pH Ur Specific [place] Urine Protein Urine Glucose (UA) Urine Ketones Urine Blood Urine Nitrite Urine Bilirubin Urine Urobilinogen Ur Leukocyte Esterase RPR Titer LABS NOTED. Assessment: 06/17/18 13:16 WITHDRAWAL SYMPTOMS. Plan: WITHDRAWAL SYMPTOMS. INCREASE DAILY PO FLUID INTAKE.
[2018-06-17] MEDS: chlordiazePOXIDE 5 MG CAPSULE PO SCH ×2 (17:44→22:09)
[2018-06-17] MEDS: THIAMINE HCL 100 MG TABLET (FP) PO SCH (22:10)
[2018-06-18] MEDS: chlordiazePOXIDE 5 MG CAPSULE PO SCH ×2 (07:11→10:48)
[2018-06-18 10:46] VITALS: BP 107/72; PULSE 70; TEMP 97.9
[2018-06-18] MEDS: PRENATAL VITAMINS W/ FOLIC ACID TABLET (FP) PO SCH (10:47)
[2018-06-18] MEDS: METHADONE HCL 5 MG TABLET (FOR DETOX USE ONLY) PO SCH (10:48)
[2018-06-18] MEDS: NICOTINE 14 MG/24 HOURS TOPICAL PATCH TD SCH (10:48)
--- NOTE | 2018-06-18 14:06 | PN ---
BHS Progress Note (SOAP) Subjective: Anxious, Fatigue. Objective: PATIENT A & O X 2 (UNCERTAIN ABOUT CURRENT DAY / DATE). PATIENT OBSERVED AMBULATING ON UNIT. NO ACUTE DISTRESS. 06/18/18 14:05 Vital Signs Temperature 97.9 F 06/18/18 10:46 Pulse Rate 70 06/18/18 10:46 Respiratory Rate 18 06/18/18 10:46 Blood Pressure 107/72 06/18/18 10:46 O2 Sat by Pulse Oximetry (%) Laboratory Tests 06/15/18 06/15/18 06/16/18 10:29 15:55 06:37 WBC RBC Hgb Hct MCV MCH MCHC RDW Plt Count MPV Sodium Potassium Chloride Carbon Dioxide Anion Gap BUN Creatinine Creat Clearance w eGFR POC Glucometer 119 105 Random Glucose Calcium Total Bilirubin AST ALT Alkaline Phosphatase Total Protein Albumin Urine Color [place] Urine Appearance Turbid Urine pH 6.0 Ur Specific [place] 1.027 Urine Protein Negative Urine Glucose (UA) Negative Urine Ketones Negative Urine Blood Negative Urine Nitrite Negative Urine Bilirubin Negative Urine Urobilinogen 2.0 Ur Leukocyte Esterase Negative RPR Titer 06/16/18 06/16/18 06/16/18 07:00 07:00 07:00 WBC 3.9 L RBC 3.99 L Hgb 11.9 Hct 36.1 MCV 90.6 MCH 29.7 MCHC 32.8 RDW 13.8 Plt Count 170 MPV 10.3 Sodium 144 Potassium 4.2 Chloride 109 H Carbon Dioxide 28 Anion Gap 7 L BUN 20 H Creatinine 0.8 Creat Clearance w eGFR > 60 POC Glucometer Random Glucose 89 Calcium 8.8 Total Bilirubin < 0.1 L AST 16 D ALT 17 D Alkaline Phosphatase 77 Total Protein 6.2 L Albumin 3.0 L Urine Color Urine Appearance Urine pH Ur Specific [place] Urine Protein Urine Glucose (UA) Urine Ketones Urine Blood Urine Nitrite Urine Bilirubin Urine Urobilinogen Ur Leukocyte Esterase RPR Titer Nonreactive 06/16/18 06/17/18 06/17/18 16:30 05:11 16:26 WBC RBC Hgb Hct MCV MCH MCHC RDW Plt Count MPV Sodium Potassium Chloride Carbon Dioxide Anion Gap BUN Creatinine Creat Clearance w eGFR POC Glucometer 118 132 127 Random Glucose Calcium Total Bilirubin AST ALT Alkaline Phosphatase Total Protein Albumin Urine Color Urine Appearance Urine pH Ur Specific [place] Urine Protein Urine Glucose (UA) Urine Ketones Urine Blood Urine Nitrite Urine Bilirubin Urine Urobilinogen Ur Leukocyte Esterase RPR Titer 06/18/18 06:27 WBC RBC Hgb Hct MCV MCH MCHC RDW Plt Count MPV Sodium Potassium Chloride Carbon Dioxide Anion Gap BUN Creatinine Creat Clearance w eGFR POC Glucometer 102 Random Glucose Calcium Total Bilirubin AST ALT Alkaline Phosphatase Total Protein Albumin Urine Color Urine Appearance Urine pH Ur Specific [place] Urine Protein Urine Glucose (UA) Urine Ketones Urine Blood Urine Nitrite Urine Bilirubin Urine Urobilinogen Ur Leukocyte Esterase RPR Titer LABS NOTED. Assessment: 06/18/18 14:05 WITHDRAWAL SYMPTOMS. Plan: CONTINUE DETOX.
--- NOTE | 2018-06-18 14:09 | DS ---
[facility] Detox Discharge Summary Admission Date: 06/15/18 Discharge Date: 06/18/18 - History Present History: Alcohol Dependence, Opioid Dependence Additional Comments: PATIENT DOES NOT WISH TO REMAIN TO COMPLETE DETOX REGIMEN. RISKS OF LEAVING DETOX UNIT AGAINST MEDICAL ADVICE AND PRIOR TO COMPLETION OF DETOX REGIMEN EXPLAINED TO PATIENT. PATIENT ADVISED TO GO IMMEDIATELY TO NEAREST ER SHOULD ANY INTOLERABLE DETOX SYMPTOMS DEVELOP AT ANY TIME. PATIENT LEFT DETOX UNIT IN STABLE MEDICAL CONDITION. Pertinent Past History: History of Type II DM, Insomnia, Weight Loss, Nicotine Dependence. - Physical Exam Results Vital Signs: Vital Signs Temperature 97.9 F 06/18/18 10:46 Pulse Rate 70 06/18/18 10:46 Respiratory Rate 18 06/18/18 10:46 Blood Pressure 107/72 06/18/18 10:46 O2 Sat by Pulse Oximetry (%) Pertinent Admission Physical Exam Findings: WITHDRAWAL SYMPTOMS. Laboratory Tests 06/15/18 06/15/18 06/16/18 10:29 15:55 06:37 WBC RBC Hgb Hct MCV MCH MCHC RDW Plt Count MPV Sodium Potassium Chloride Carbon Dioxide Anion Gap BUN Creatinine Creat Clearance w eGFR POC Glucometer 119 105 Random Glucose Calcium Total Bilirubin AST ALT Alkaline Phosphatase Total Protein Albumin Urine Color [place] Urine Appearance Turbid Urine pH 6.0 Ur Specific [place] 1.027 Urine Protein Negative Urine Glucose (UA) Negative Urine Ketones Negative Urine Blood Negative Urine Nitrite Negative Urine Bilirubin Negative Urine Urobilinogen 2.0 Ur Leukocyte Esterase Negative RPR Titer 06/16/18 06/16/18 06/16/18 07:00 07:00 07:00 WBC 3.9 L RBC 3.99 L Hgb 11.9 Hct 36.1 MCV 90.6 MCH 29.7 MCHC 32.8 RDW 13.8 Plt Count 170 MPV 10.3 Sodium 144 Potassium 4.2 Chloride 109 H Carbon Dioxide 28 Anion Gap 7 L BUN 20 H Creatinine 0.8 Creat Clearance w eGFR > 60 POC Glucometer Random Glucose 89 Calcium 8.8 Total Bilirubin < 0.1 L AST 16 D ALT 17 D Alkaline Phosphatase 77 Total Protein 6.2 L Albumin 3.0 L Urine Color Urine Appearance Urine pH Ur Specific [place] Urine Protein Urine Glucose (UA) Urine Ketones Urine Blood Urine Nitrite Urine Bilirubin Urine Urobilinogen Ur Leukocyte Esterase RPR Titer Nonreactive 08/27/18 08/28/18 08/28/18 16:30 05:11 16:26 WBC RBC Hgb Hct MCV MCH MCHC RDW Plt Count MPV Sodium Potassium Chloride Carbon Dioxide Anion Gap BUN Creatinine Creat Clearance w eGFR POC Glucometer 118 132 127 Random Glucose Calcium Total Bilirubin AST ALT Alkaline Phosphatase Total Protein Albumin Urine Color Urine Appearance Urine pH Ur Specific [place] Urine Protein Urine Glucose (UA) Urine Ketones Urine Blood Urine Nitrite Urine Bilirubin Urine Urobilinogen Ur Leukocyte Esterase RPR Titer 06/18/18 06:27 WBC RBC Hgb Hct MCV MCH MCHC RDW Plt Count MPV Sodium Potassium Chloride Carbon Dioxide Anion Gap BUN Creatinine Creat Clearance w eGFR POC Glucometer 102 Random Glucose Calcium Total Bilirubin AST ALT Alkaline Phosphatase Total Protein Albumin Urine Color Urine Appearance Urine pH Ur Specific [place] Urine Protein Urine Glucose (UA) Urine Ketones Urine Blood Urine Nitrite Urine Bilirubin Urine Urobilinogen Ur Leukocyte Esterase RPR Titer LABS NOTED. - Treatment Hospital Course: Detoxed Safely - Medication Discharge Medications: Ambulatory Orders Cholecalciferol (Vitamin D3) [Vitamin D3 -] 1,000 unit PO DAILY 07/02/15 metFORMIN HCL [Glucophage -] 850 mg PO DAILY 07/02/15 - Diagnosis (1) Alcohol dependence with uncomplicated withdrawal Status: Acute (2) Nicotine dependence Status: Acute Qualifiers: Nicotine product type: cigarettes Substance use status: uncomplicated Qualified Code(s): F17.210 - Nicotine dependence, cigarettes, uncomplicated (3) Opioid dependence with uncomplicated intoxication Status: Acute (4) Weight loss Status: Chronic (5) Anxiety Status: Suspected (6) Diabetes mellitus type 2, controlled, without complications Status: Chronic Qualifiers: Diabetes mellitus long-term insulin use: without long-term use Qualified Code(s): E11.9 - Type 2 diabetes mellitus without complications - AMA Did Patient Leave Against Medical Advice: Yes (PATIENT DID NOT WISH TO REMIAN TO COMPLETE DETOX REGIMEN.)
[2018-06-18] MEDS ORDERED: chlordiazePOXIDE HCL 10 MG CAPSULE PO SCH (17:00)
[2018-06-19] MEDS ORDERED: METHADONE HCL 10 MG TABLET (FOR DETOX USE ONLY) PO SCH (10:00)
[2018-06-20] MEDS ORDERED: METHADONE HCL 5 MG TABLET (FOR DETOX USE ONLY) PO SCH (06:00)
== END 2018-06-18 11:30 | disposition left against medical advice (07) | DRG 770 ==
LOC: YASAS 09:27 → Y3N 10:43
PROVIDERS: ADMIT Surgery; ATTEND Surgery
PROC: HZ2ZZZZ Detoxification Services for Substance Abuse Treatment (ICD-10-PCS; principal; 2018-06-15)
DX: F11.220 Opioid dependence with intoxication, uncomplicated (principal); F10.230 Alcohol dependence with withdrawal, uncomplicated; F14.20 Cocaine dependence, uncomplicated; F17.210 Nicotine dependence, cigarettes, uncomplicated; F41.9 Anxiety disorder, unspecified; F19.24 Other psychoactive substance dependence with psychoactive substance-induced mood disorder; E11.9 Type 2 diabetes mellitus without complications; G47.00 Insomnia, unspecified; Z91.013 Allergy to seafood; Z87.898 Personal history of other specified conditions; Z79.84 Long term (current) use of oral hypoglycemic drugs
CPT/HCPCS: 36415; 80053; 81003; 82962; 85027; 86593; 93005; 93010

== ENCOUNTER 2019-04-14 18:39 | Inpatient (IN) | payer OTHER ==
[2019-04-14 22:26] VITALS: BMI 22.6
--- NOTE | 2019-04-14 23:23 | HP ---
COWS - Scale Resting Pulse: 1= OK 81-100 Sweatin=Flushed/Facial Moisture Restless Observation: 0= Sits Still Pupil Size: 2= Moderately Dilated (Pupils = 5 mm) Bone or Joint Aches: 0= None Runny Nose/ Eye Tearin= Nasal Congestion GI Upset > 30mins: 2= Nausea/Diarrhea Tremor Observation: 2= Slight Tremor Visible Yawning Observation: 1= 1-2x During Session Anxiety or Irritability: 1=Feels Anxious/Irritable Goose Flesh Skin: 0=Smooth Skin COWS Score: 12 CIWA Score Nausea/Vomitin Muscle Tremors: 4-Moderate,w/Arms Extend Anxiety: 1-Mildly Anxious Agitation: 1-Slight > Activity Paroxysmal Sweats: 3 (Increased facial moisture) Orientation: 0-Oriented Tacttile Disturbances: 0-None Auditory Disturbances: 0-None Visual Disturbances: 0-None Headache: 0-None Present CIWA-Ar Total Score: 12 - Admission Criteria OAS Guidelines: Admission for Medically Managed Detox: Requires at least one of the followin. CIWA greater than 12 2. Seizures within the past 24 hours 3. Delirium tremens within the past 24 hours 4. Hallucinations within the past 24 hours 5. Acute intervention needed for co occurring medical disorder 6. Acute intervention needed for co occurring psychiatric disorder 7. Severe withdrawal that cannot be handled at a lower level of care (continued vomiting, continued diarrhea, abnormal vital signs) requiring intravenous medication and/or fluids 8. Patient presents the following: CIWA greater than 12 Admission Criteria Met: Admission criteria met Admission ROS [facility] Chief Complaint: I'm having heroin and alcohol withdrawal. Allergies/Adverse Reactions: Allergies Allergy/AdvReac Type Severity Reaction Status Date / Time Fish Containing Products Allergy Verified 04/14/19 22:16 No Known Drug Allergies Allergy Verified 04/14/19 22:16 History of Present Illness: 58 YO with alcohol and heroin withdrawal symptoms presents for detox. States has cut down over last 2 days and feels really ill. Seen at [facility] on 04/13/19 w/ c/o L leg pain s/p fall on 04/12/19. ( States fell off train platform while intoxicated)Patient examined and diagnosed w/ closed displaced fx (L) calcaneus. Discharge orders were for Tylenol 1 gm PO Q6H PRN pain x 7 days. Alcohol use began at age 15. Currently 1 pint alcohol over 2 days. Heroin use began at age 30. States stopped Suboxone 1 month ago. Started back on heroin in February. Currently 10 bags/day. Cocaine use began at age 30 - smokes about 1 gm/day Marijuana use couple puffs only recently. Nicotine use began at age [age]. Currently smokes 1/2 PPD. States stayed sober for 2 months after last admission by going to meeting. Denies overdoses, seizures, blackouts. [facility] and living in [facility] system. PMHx:DM; Fx foot; Instructed patient to notify staff of any increase in pain severity, choking sensation in leg, increase swelling of toes, change in color of toes. MHHx; Anxious. Denies depression. Denies thoughts of harming self or others. Patient Name: Francis Schneider Date: 1960 Address: [address] [place] [address] Sex: Male Rx Written Rx Dispensed Drug Quantity Days Supply Prescriber Name 03/26/2019 03/26/2019 alprazolam 1 mg tablet 60 30 Anival Baker 03/17/2019 03/17/2019 zolpidem tartrate 10 mg tablet 30 30 Tayla Del Valle MD 03/11/2019 03/13/2019 suboxone 8 mg-2 mg sl film 90 30 Tayla Del Valle MD 02/13/2019 02/13/2019 zolpidem tartrate 10 mg tablet 30 30 Tayla Del Valle MD 02/13/2019 02/13/2019 suboxone 8 mg-2 mg sl film 90 30 Tayla Del Valle MD 01/15/2019 01/15/2019 buprenorphine-naloxone 8-2 mg sl film 90 30 Tayla Del Valle MD 01/15/2019 01/15/2019 zolpidem tartrate 10 mg tablet 30 30 Tayla Del Valle MD 05/13/2018 05/13/2018 zolpidem tartrate 10 mg tablet 30 30 Anival Baker Patient Name: Francis Schneider Date: 1960 Address: [address] [address] Sex: Male Rx Written Rx Dispensed Drug Quantity Days Supply Prescriber Name 02/23/2019 02/23/2019 diazepam 10 mg tablet 5 5 Chin Kearney () Patient Name: Francis Schneider Date: 1960 Address: [address] [place] [id number] Sex: Male Rx Written Rx Dispensed Drug Quantity Days Supply Prescriber Name 11/14/2018 12/11/2018 zolpidem tartrate 10 mg tablet 30 30 MD Yobany, Mac 12/11/2018 12/11/2018 suboxone 8 mg-2 mg sl film 90 30 MD Yobany, Mac 11/14/2018 11/14/2018 zolpidem tartrate 10 mg tablet 30 30 MD Yobany, Mac 11/14/2018 11/14/2018 suboxone 8 mg-2 mg sl film 90 30 MD Yobany, Mac 10/16/2018 10/16/2018 suboxone 8 mg-2 mg sl film 90 30 MD Yobany, Mac 09/16/2018 09/16/2018 suboxone 8 mg-2 mg sl film 60 20 MD Yobany, Mac 08/11/2018 08/11/2018 suboxone 8 mg-2 mg sl film 90 30 MD Yobany, Mac 08/11/2018 08/11/2018 zolpidem tartrate 10 mg tablet 30 30 MD Yobany, Mac 07/11/2018 07/11/2018 zolpidem tartrate 10 mg tablet 30 30 MD Yobany, Mac 07/11/2018 07/11/2018 suboxone 8 mg-2 mg sl film 90 30 MD Yobany, Mac 06/06/2018 06/06/2018 suboxone 8 mg-2 mg sl film 90 30 MD Yobany, Mac 05/09/2018 05/09/2018 suboxone 8 mg-2 mg sl film 90 30 MD Yobany, Mac Patient Name: Francis Schneider Date: 1960 Address: [address] [address] Sex: Male Rx Written Rx Dispensed Drug Quantity Days Supply Prescriber Name 06/28/2018 06/28/2018 chlordiazepoxide 25 mg capsule 8 2 Pantera Goldberg ( VICTOR HUGO) Exam Limitations: No Limitations - Ebola screening Have you traveled outside of the country in the last 21 days: No (N) Have you had contact with anyone from an Ebola affected area: No Have you been sick,other than usual withdrawal symptoms: No (Denies recent exposure to measles) Do you have a fever: No - Review of Systems Constitutional: Chills, Diaphoresis EENT: reports: Blurred Vision, Nose Congestion, Dental Problems (No teeth. Chews and ok.) Respiratory: reports: No Symptoms reported Cardiac: reports: No Symptoms Reported GI: reports: Diarrhea (Earlier today. Brownish/greenish.), Nausea : reports: No Symptoms Reported Musculoskeletal: reports: Other ((L) foot pain - sharp -"5/6" Increases w/ walking.) Integumentary: reports: No Symptoms Reported Neuro: reports: Tremors, Unsteady Gait Endocrine: reports: Increased Thirst Hematology: reports: No Symptoms Reported Psychiatric: reports: Judgement Intact, Orientated x3, Anxious Other Systems: Reviewed and Negative Patient History - Patient Medical History Hx Anemia: No Hx Asthma: No Hx Chronic Obstructive Pulmonary Disease (COPD): No Hx Cancer: No Hx Cardiac Disorders: No Hx Congestive Heart Failure: No Hx Hypertension: No Hx Hypercholesterolemia: No Hx Pacemaker: No HX Cerebrovascular Accident: No Hx Seizures: No Hx Dementia: No Hx Diabetes: Yes (BGM-113, states he is borderline - takes Metformin on and off) Hx Gastrointestinal Disorders: No Hx Liver Disease: No Hx Genitourinary Disorders: No Hx Sexually Transmitted Disorders: No Hx Renal Disease (ESRD): No Hx Thyroid Disease: No Hx Human Immunodeficiency Virus (HIV): No (negative) Hx Hepatitis C: No (negative) Hx Depression: Yes Hx Suicide Attempt: No (denies) Hx Bipolar Disorder: No Hx Schizophrenia: No - Patient Surgical History Past Surgical History: No Hx Neurologic Surgery: No Hx Cataract Extraction: No Hx Cardiac Surgery: No Hx Lung Surgery: No Hx Breast Surgery: No Hx Breast Biopsy: No Hx Abdominal Surgery: No Hx Appendectomy: No Hx Cholecystectomy: No Hx Genitourinary Surgery: No Hx Section: No Hx Orthopedic Surgery: No Anesthesia Reaction: No - PPD History Previous Implant?: Yes Documented Results: Negative w/proof Implanted On Prior [facility] Admission?: Yes Date: 10/15/17 PPD to be Administered?: Yes - Smoking Cessation Smoking history: Current every day smoker Have you smoked in the past 12 months: Yes Aproximately how many cigarettes per day: 10 Cigars Per Day: 0 Hx Chewing Tobacco Use: No Initiated information on smoking cessation: Yes 'Breaking Loose' booklet given: 04/14/19 - Substance & Tx. History Hx Alcohol Use: Yes Hx Substance Use: Yes Substance Use Type: Alcohol, Cocaine, Heroin Hx Substance Use Treatment: Yes (detox, rehab) - Substances abused Heroin Substance route: Inhalation Frequency: Daily Amount used: 10 bags Age of first use: 30 Date of last use: 04/12/19 Alcohol Substance route: Oral Frequency: Daily Amount used: 1 to 2 pints Age of first use: 15 Date of last use: 04/12/19 Crack Substance route: Smoking Frequency: Daily Amount used: 60 dollars Age of first use: 30 Date of last use: 04/12/19 Family Disease History - Family Disease History Family Disease History: [place]: Father (), Mother () Admission Physical Exam [facility] - Vital Signs Vital Signs: Vital Signs - 24 hr 04/14/19 22:15 Temperature 98.1 F Pulse Rate 82 Respiratory 18 Rate Blood Pressure 100/68 - Physical General Appearance: Yes: Mild Distress, Tremorous, Sweating (Increased facial moisture), Anxious HEENTM: Yes: EOMI, Hearing grossly Normal, Normocephalic, Normal Voice, ANUP ( Pupils = 5 mm), Pharynx Normal, Nasal Congestion Respiratory: Yes: Lungs Clear, Normal Breath Sounds, No Respiratory Distress Neck: Yes: No masses,lesions,Nodules, Supple Breast: Yes: Breast Exam Deferred Cardiology: Yes: Regular Rhythm, Regular Rate, S1, S2 Abdominal: Yes: Non Tender, Flat, Soft, Increased Bowel Sounds Genitourinary: Yes: Within Normal Limits Back: Yes: Normal Inspection Musculoskeletal: Yes: Other (Splint from (L) foot to below knee in place. No signs of bleeding. Pedal pulse present. Slight swelling of toes. Skin warm. Skin color wnl. Cap refill < 3 sec.) Extremities: Yes: Normal Capillary Refill, Tremors (Gross tremors w/ arms extended) Neurological: Yes: electrical logger II-XII NML intact, Fully Oriented, Alert, Motor Strength 5/5 Integumentary: Yes: Normal Color, Warm, Diaphoresis (Increased facial moisture) Lymphatic: Yes: Within Normal Limits - Diagnostic (1) Opioid dependence with withdrawal Current Visit: Yes Status: Acute (2) Alcohol dependence with uncomplicated withdrawal Current Visit: Yes Status: Acute (3) Cocaine dependence Current Visit: No Status: Acute Qualifiers: Substance use status: uncomplicated Qualified Code(s): F14.20 - Cocaine dependence, uncomplicated (4) Left calcaneal fracture Current Visit: Yes Status: Acute Qualifiers: Encounter type: subsequent encounter Calcaneus location: unspecified portion of calcaneus Fracture type: closed Fracture alignment: displaced Fracture healing: with routine healing Qualified Code(s): S92.002D - Unspecified fracture of left calcaneus, subsequent encounter for fracture with routine healing Comment: Patient has on a splint. (5) Diabetes mellitus type 2, controlled, without complications Current Visit: Yes Status: Chronic Qualifiers: Diabetes mellitus penitentiary insulin use: without computer terminal operator use Qualified Code(s): E11.9 - Type 2 diabetes mellitus without complications Cleared for Admission [facility] - Detox or Rehab [facility] Level of Care: Medically Managed Detox Regimen/Protocol: Methadone/Valium Claeared for Rehab Admission: No Breathalyzer - Breathalyzer Breathalyzer: 0 Urine Drug Screen - Test Device Lot number: [id number] Expiration date: 12/18/20 - Control Is test valid?: Yes - Results Drug screen NEGATIVE: No Urine drug screen results: THC-Marijuana, [place]-Cocaine, MOP-Opiates Inpatient Rehab Admission - Rehab Decision to Admit Inpatient rehab admission?: No
[2019-04-15] MEDS ORDERED: MAG HYDROX/AL HYDROX/SIMETH 30 ML UNIT-DOSE CUP PO PRN (00:26)
[2019-04-15] MEDS ORDERED: METHOCARBAMOL 500 MG TABLET PO PRN (00:26)
[2019-04-15] MEDS ORDERED: BISMUTH SUBSALICYLATE 524 MG/30 ML UD PO PRN (00:26)
[2019-04-15] MEDS ORDERED: MAGNESIUM HYDROX 2400MG/30ML ORAL SUSPENSION 30 ML CUP PO PRN (00:26)
[2019-04-15] MEDS ORDERED: MAGNESIUM CITRATE 300 ML BOTTLE PO PRN (00:26)
[2019-04-15] MEDS ORDERED: MELATONIN 5 MG TABLETS PO PRN (00:26)
[2019-04-15] MEDS ORDERED: METHADONE HCL 10 MG TABLET (FOR DETOX USE ONLY) PO ONE ×2 (00:26→10:00)
[2019-04-15] MEDS ORDERED: PROCHLORPERAZINE MALEATE 5 MG TABLET PO PRN (00:26)
[2019-04-15] MEDS ORDERED: diazePAM 5 MG TABLET PO ONE (00:26)
[2019-04-15] MEDS ORDERED: IBUPROFEN 400 MG TABLET (FP) PO PRN (00:26)
[2019-04-15] MEDS ORDERED: ACETAMINOPHEN 325 MG TABLET (FP) PO PRN ×2 (00:26)
[2019-04-15] MEDS ORDERED: MENTHOL/PHENOL 1 EACH UD MM PRN (00:26)
[2019-04-15] MEDS: cloNIDine HCL 0.1 MG TABLET PO PRN (01:04)
[2019-04-15] MEDS: diazePAM 5 MG TABLET PO SCH ×3 (06:00→21:49)
--- NOTE | 2019-04-15 08:04 | EKG ---
Test Reason : Blood Pressure : / mmHG Vent. Rate : 066 BPM Atrial Rate : 066 BPM P-R Int : 150 ms QRS Dur : 092 ms QT Int : 406 ms P-R-T Axes : 081 068 063 degrees QTc Int : 425 ms NORMAL SINUS RHYTHM VOLTAGE CRITERIA FOR LEFT VENTRICULAR HYPERTROPHY ABNORMAL ECG WHEN COMPARED WITH ECG OF 15-JUN-2018 12:45, NO SIGNIFICANT CHANGE WAS FOUND Confirmed by KAREN CASTILLO, MELANIA ([id number]) on 04/15/2019 8:04:11 AM Referred By: Keyon Toledo Confirmed By:MELANIA JONES MD
[2019-04-15] MEDS ORDERED: CHOLECALCIFEROL (VIT D3) 1,000 UNIT (25 MCG) TABLET PO SCH (10:00)
[2019-04-15 10:02] LABS: ALBUMIN 2.9 g/dl (3.4-5.0); BILIRUBIN,TOTAL 0.2 mg/dL (0.2-1); BLOOD UREA NITROGEN 15.2 mg/dL (7-18); CREATININE 0.9 mg/dL (0.55-1.3); TOT PROT 6.9 g/dl (6.4-8.2)
[2019-04-15 10:04] LABS: HEMATOCRIT 33.2 % (35.4-49); HEMOGLOBIN 10.8 GM/dL (11.7-16.9); MCH 29.1 pg (25.7-33.7); MCHC 32.6 g/dl (32.0-35.9); MEAN PLT VOLUME 8.8 fl (7.5-11.1); PLATELET COUNT 382 K/MM3 (134-434); RBC 3.73 M/mm3 (4.00-5.60); RDW 13.9 % (11.9-15.9)
[2019-04-15] MEDS: diazePAM 5 MG TABLET PO PRN (10:43)
[2019-04-15] MEDS: PRENATAL VITAMINS W/ FOLIC ACID TABLET (FP) PO SCH (10:45)
[2019-04-15] MEDS: NICOTINE 14 MG/24 HOURS TOPICAL PATCH TD SCH (10:45)
--- NOTE | 2019-04-15 15:14 | PN ---
S CIWA - CIWA Score Nausea/Vomitin-No Nausea/No Vomiting Muscle Tremors: 2 Anxiety: 2 Agitation: 1-Slight > Activity Paroxysmal Sweats: 3 Orientation: 0-Oriented Tacttile Disturbances: 2-Mild Itch/Numbness/Burn Auditory Disturbances: 0-None Visual Disturbances: 2-Mild Sensitivity Headache: 0-None Present CIWA-Ar Total Score: 12 [facility] COWS - Scale Resting Pulse: 1= OR 81-100 Sweatin= Chills/Flushing Restless Observation: 1= Difficult to Sit Still Pupil Size: 0= Normal to Room Light Bone or Joint Aches: 0= None Runny Nose/ Eye Tearin= None GI Upset > 30mins: 0= None Tremor Observation of Outstretched Hands: 2= Slight Tremor Visible Yawning Observation: 1= 1-2x During Session Anxiety or Irritability: 2=Irritable/Anxious Goose Flesh Skin: 3=Piloerection COWS Score: 11 S Progress Note (SOAP) Subjective: Sweating, Tremors, Fatigue. Objective: PATIENT A & O X 3. IN NO ACUTE DISTRESS. 04/15/19 15:15 Vital Signs Temperature 97.8 F 04/15/19 13:07 Pulse Rate 81 04/15/19 13:07 Respiratory Rate 18 04/15/19 13:07 Blood Pressure 100/65 04/15/19 13:07 O2 Sat by Pulse Oximetry (%) Laboratory Tests 04/15/19 04/15/19 04/15/19 06:18 07:00 07:00 WBC 8.0 RBC 3.73 L Hgb 10.8 L Hct 33.2 L MCV 89.0 MCH 29.1 MCHC 32.6 RDW 13.9 Plt Count 382 D MPV 8.8 D Sodium 141 Potassium 4.0 Chloride 107 Carbon Dioxide 30 Anion Gap 4 L BUN 15.2 Creatinine 0.9 Est GFR (CKD-EPI)AfAm 108.73 Est GFR (CKD-EPI)NonAf 93.82 POC Glucometer 119 Random Glucose 95 Calcium 9.0 Total Bilirubin 0.2 AST 20 ALT 18 Alkaline Phosphatase 58 Total Protein 6.9 Albumin 2.9 L RPR Titer 04/15/19 07:00 WBC RBC Hgb Hct MCV MCH MCHC RDW Plt Count MPV Sodium Potassium Chloride Carbon Dioxide Anion Gap BUN Creatinine Est GFR (CKD-EPI)AfAm Est GFR (CKD-EPI)NonAf POC Glucometer Random Glucose Calcium Total Bilirubin AST ALT Alkaline Phosphatase Total Protein Albumin RPR Titer Nonreactive LABS NOTED. Assessment: 04/15/19 15:17 WITHDRAWAL SYMPTOMS. ANEMIA. Plan: CONTINUE DETOX. PATIENT IS CURRENTLY RECEIVING DAILY MVI CONTAINING B VITAMINS AND IRON WHILE ADMITTED FOR DETOX.
[2019-04-15] MEDS: THIAMINE HCL 100 MG TABLET (FP) PO SCH (21:49)
[2019-04-16] MEDS: diazePAM 5 MG TABLET PO SCH ×2 (06:13→17:38)
[2019-04-16] MEDS ORDERED: METHADONE HCL 5 MG TABLET (FOR DETOX USE ONLY) PO ONE (10:00)
[2019-04-16] MEDS: PRENATAL VITAMINS W/ FOLIC ACID TABLET (FP) PO SCH (10:27)
[2019-04-16] MEDS: NICOTINE 14 MG/24 HOURS TOPICAL PATCH TD SCH (10:27)
--- NOTE | 2019-04-16 13:17 | PN ---
S CIWA - CIWA Score Nausea/Vomitin Muscle Tremors: 2 Anxiety: 2 Agitation: 2 Paroxysmal Sweats: 1-Minimal Palms Moist Orientation: 0-Oriented Tacttile Disturbances: 1-Very Mild Itch/Numbness Auditory Disturbances: 1-Very Mild Visual Disturbances: 0-None Headache: 2-Mild CIWA-Ar Total Score: 13 [facility] COWS - Scale Resting Pulse: 0= MT 80 or Below Sweatin= Chills/Flushing Restless Observation: 1= Difficult to Sit Still Pupil Size: 1= Pupils >than Normal Bone or Joint Aches: 2= Severe Diffuse Aches Runny Nose/ Eye Tearin= Nasal Congestion GI Upset > 30mins: 2= Nausea/Diarrhea Tremor Observation of Outstretched Hands: 2= Slight Tremor Visible Yawning Observation: 1= 1-2x During Session Anxiety or Irritability: 2=Irritable/Anxious Goose Flesh Skin: 0=Smooth Skin COWS Score: 13 [facility] Progress Note (SOAP) Subjective: alert,irritable,anxious,interrupted sleep,tremor,pain in the body and back Objective: 04/16/19 13:15 Vital Signs Temperature 98.4 F 04/16/19 13:07 Pulse Rate 74 04/16/19 13:07 Respiratory Rate 8 L 04/16/19 13:07 Blood Pressure 106/73 04/16/19 13:07 O2 Sat by Pulse Oximetry (%) Laboratory Last Values WBC 8.0 K/mm3 (4.0-10.0) 04/15/19 07:00 RBC 3.73 M/mm3 (4.00-5.60) L 04/15/19 07:00 Hgb 10.8 GM/dL (11.7-16.9) L 04/15/19 07:00 Hct 33.2 % (35.4-49) L 04/15/19 07:00 MCV 89.0 fl (80-96) 04/15/19 07:00 MCH 29.1 pg (25.7-33.7) 04/15/19 07:00 MCHC 32.6 g/dl (32.0-35.9) 04/15/19 07:00 RDW 13.9 % (11.9-15.9) 04/15/19 07:00 Plt Count 382 K/MM3 (134-434) D 04/15/19 07:00 MPV 8.8 fl (7.5-11.1) D 04/15/19 07:00 Sodium 141 mmol/L (136-145) 04/15/19 07:00 Potassium 4.0 mmol/L (3.5-5.1) 04/15/19 07:00 Chloride 107 mmol/L (98-107) 04/15/19 07:00 Carbon Dioxide 30 mmol/L (21-32) 04/15/19 07:00 Anion Gap 4 MMOL/L (8-16) L 04/15/19 07:00 BUN 15.2 mg/dL (7-18) 04/15/19 07:00 Creatinine 0.9 mg/dL (0.55-1.3) 04/15/19 07:00 Est GFR (CKD-EPI)AfAm 108.73 04/15/19 07:00 Est GFR (CKD-EPI)NonAf 93.82 04/15/19 07:00 POC Glucometer 143 UNITS (80-120) 04/16/19 11:46 Random Glucose 95 mg/dL (74-106) 04/15/19 07:00 Calcium 9.0 mg/dL (8.5-10.1) 04/15/19 07:00 Total Bilirubin 0.2 mg/dL (0.2-1) 04/15/19 07:00 AST 20 U/L (15-37) 04/15/19 07:00 ALT 18 U/L (13-61) 04/15/19 07:00 Alkaline Phosphatase 58 U/L (45-117) 04/15/19 07:00 Total Protein 6.9 g/dl (6.4-8.2) 04/15/19 07:00 Albumin 2.9 g/dl (3.4-5.0) L 04/15/19 07:00 RPR Titer Nonreactive (NONREACTIVE) 04/15/19 07:00 04/16/19 13:16 bgm 143 Assessment: 04/16/19 13:16 withdrawal symptom Plan: continue detox,bgm monitoring
--- NOTE | 2019-04-16 16:42 | PN ---
[facility] Progress Note Note: Vital Signs Temperature 98.4 F 04/16/19 13:07 Pulse Rate 74 04/16/19 13:07 Respiratory Rate 8 L 04/16/19 13:07 Blood Pressure 106/73 04/16/19 13:07 O2 Sat by Pulse Oximetry (%) Laboratory Last Values WBC 8.0 K/mm3 (4.0-10.0) 04/15/19 07:00 RBC 3.73 M/mm3 (4.00-5.60) L 04/15/19 07:00 Hgb 10.8 GM/dL (11.7-16.9) L 04/15/19 07:00 Hct 33.2 % (35.4-49) L 04/15/19 07:00 MCV 89.0 fl (80-96) 04/15/19 07:00 MCH 29.1 pg (25.7-33.7) 04/15/19 07:00 MCHC 32.6 g/dl (32.0-35.9) 04/15/19 07:00 RDW 13.9 % (11.9-15.9) 04/15/19 07:00 Plt Count 382 K/MM3 (134-434) D 04/15/19 07:00 MPV 8.8 fl (7.5-11.1) D 04/15/19 07:00 Sodium 141 mmol/L (136-145) 04/15/19 07:00 Potassium 4.0 mmol/L (3.5-5.1) 04/15/19 07:00 Chloride 107 mmol/L (98-107) 04/15/19 07:00 Carbon Dioxide 30 mmol/L (21-32) 04/15/19 07:00 Anion Gap 4 MMOL/L (8-16) L 04/15/19 07:00 BUN 15.2 mg/dL (7-18) 04/15/19 07:00 Creatinine 0.9 mg/dL (0.55-1.3) 04/15/19 07:00 Est GFR (CKD-EPI)AfAm 108.73 04/15/19 07:00 Est GFR (CKD-EPI)NonAf 93.82 04/15/19 07:00 POC Glucometer 92 UNITS (80-120) 04/16/19 16:31 Random Glucose 95 mg/dL (74-106) 04/15/19 07:00 Calcium 9.0 mg/dL (8.5-10.1) 04/15/19 07:00 Total Bilirubin 0.2 mg/dL (0.2-1) 04/15/19 07:00 AST 20 U/L (15-37) 04/15/19 07:00 ALT 18 U/L (13-61) 04/15/19 07:00 Alkaline Phosphatase 58 U/L (45-117) 04/15/19 07:00 Total Protein 6.9 g/dl (6.4-8.2) 04/15/19 07:00 Albumin 2.9 g/dl (3.4-5.0) L 04/15/19 07:00 RPR Titer Nonreactive (NONREACTIVE) 04/15/19 07:00 patient on metformin qd and BGM ACHS, BGM during stay stable, d/c bgm ACHS to BGM QDAC increase fluids continue to monitor
[2019-04-16] MEDS: diazePAM 5 MG TABLET PO PRN (21:02)
[2019-04-16] MEDS: THIAMINE HCL 100 MG TABLET (FP) PO SCH (21:03)
[2019-04-16] MEDS: cloNIDine HCL 0.1 MG TABLET PO PRN (21:03)
[2019-04-17] MEDS ORDERED: diazePAM 5 MG TABLET PO ONE (06:00)
[2019-04-17 09:33] VITALS: BP 100/68; PULSE 64; TEMP 98.3
[2019-04-17] MEDS ORDERED: METHADONE HCL 10 MG TABLET (FOR DETOX USE ONLY) PO ONE (10:00)
[2019-04-17] MEDS: PRENATAL VITAMINS W/ FOLIC ACID TABLET (FP) PO SCH (10:19)
[2019-04-17] MEDS: NICOTINE 14 MG/24 HOURS TOPICAL PATCH TD SCH (10:20)
[2019-04-17] MEDS: diazePAM 5 MG TABLET PO PRN (10:22)
--- NOTE | 2019-04-17 11:13 | PN ---
[facility] CIWA - CIWA Score Nausea/Vomitin-No Nausea/No Vomiting Muscle Tremors: None Anxiety: 1-Mildly Anxious Agitation: 1-Slight > Activity Paroxysmal Sweats: No Perspiration Orientation: 0-Oriented Tacttile Disturbances: 0-None Auditory Disturbances: 0-None Visual Disturbances: 0-None Headache: 1-Very Mild CIWA-Ar Total Score: 3 S COWS - Scale Resting Pulse: 0= DC 80 or Below Sweatin= No chills or Flushing Restless Observation: 0= Sits Still Pupil Size: 0= Normal to Room Light Bone or Joint Aches: 1= Mild Discomfort Runny Nose/ Eye Tearin= None GI Upset > 30mins: 0= None Tremor Observation of Outstretched Hands: 0= None Yawning Observation: 0= None Anxiety or Irritability: 1=Feels Anxious/Irritable Goose Flesh Skin: 0=Smooth Skin COWS Score: 2 [facility] Progress Note (SOAP) Subjective: alert,no complaint Objective: 04/17/19 11:11 Vital Signs Temperature 98.3 F 04/17/19 09:32 Pulse Rate 64 04/17/19 09:32 Respiratory Rate 18 04/17/19 09:32 Blood Pressure 100/68 04/17/19 09:32 O2 Sat by Pulse Oximetry (%) Assessment: 04/17/19 11:12 detox completed,no withdrawal symptom Plan: stable for discharge today,follow up with [facility]
--- NOTE | 2019-04-17 11:16 | DS ---
[facility] Detox Discharge Summary Admission Date: 04/14/19 Discharge Date: 04/17/19 - History Present History: Alcohol Dependence, Cocaine Dependence, Opioid Dependence Additional Comments: follow up with [facility] as arrangement Pertinent Past History: calcaneal fracture type 2 dm - Physical Exam Results Vital Signs: Vital Signs Temperature 98.3 F 04/17/19 09:32 Pulse Rate 64 04/17/19 09:32 Respiratory Rate 18 04/17/19 09:32 Blood Pressure 100/68 04/17/19 09:32 O2 Sat by Pulse Oximetry (%) Pertinent Admission Physical Exam Findings: withdrawal signs and symptom - Treatment Hospital Course: Detox Protocol Followed, Detoxed Safely, Responded well, Discharged Condition Good, Rehab Referral Accepted Patient has Accepted a Rehab Referral to: [facility] - Medication Discharge Medications: Ambulatory Orders Cholecalciferol (Vitamin D3) [Vitamin D3 -] 1,000 unit PO WEEKLY 07/02/15 metFORMIN HCL [Glucophage -] 850 mg PO DAILY 07/02/15 - AMA Did Patient Leave Against Medical Advice: No
[2019-04-17 11:41] LABS: URINE APPEARANCE CLEAR; URINE BILIRUBIN NEGATIVE (NEGATIVE); URINE COLOR YELLOW; URINE GLUCOSE (UA) NEGATIVE (NEGATIVE); URINE KETONE NEGATIVE (NEGATIVE); URINE LEUK ESTERASE NEGATIVE (NEGATIVE); URINE NITRITE NEGATIVE (NEGATIVE); URINE PROTEIN NEGATIVE (NEGATIVE); URINE UROBILINOGEN 0.2 mg/dL (0.2-1.0)
[2019-04-18] MEDS ORDERED: METHADONE HCL 5 MG TABLET (FOR DETOX USE ONLY) PO ONE (06:00)
== END 2019-04-17 12:40 | disposition home or self-care (01) | DRG 773 ==
LOC: YASAS 18:39 → Y3N 23:56
PROVIDERS: ADMIT Surgery; ATTEND Surgery
PROC: HZ2ZZZZ Detoxification Services for Substance Abuse Treatment (ICD-10-PCS; principal; 2019-04-14)
DX: F11.23 Opioid dependence with withdrawal (principal); F10.230 Alcohol dependence with withdrawal, uncomplicated; F14.20 Cocaine dependence, uncomplicated; F12.20 Cannabis dependence, uncomplicated; F17.210 Nicotine dependence, cigarettes, uncomplicated; E11.9 Type 2 diabetes mellitus without complications; Z79.84 Long term (current) use of oral hypoglycemic drugs; S92.002D Unspecified fracture of left calcaneus, subsequent encounter for fracture with routine healing; X58.XXXD Exposure to other specified factors, subsequent encounter
CPT/HCPCS: 36415; 80053; 81003; 82962; 85027; 86593; 93005; 93010; J0735

== ENCOUNTER 2019-04-17 14:22 | Inpatient (IN) | payer OTHER ==
[2019-04-17 16:41] VITALS: BMI 22.9
--- NOTE | 2019-04-17 18:06 | HP ---
[facility] Rehab Assess/Revision - Admission History Admitted to Rehab from: [facility] [place] Date of Admission to Rehab: 04/17/2019 - Vital signs Vital Signs: Vital Signs Period Temp Pulse Resp BP Sys/[place] Pulse Ox Last 24 Hr 99.3 F-99.3 F 74-74 18-18 104-104/70-70 - Findings Detox History & Physical reviewed: Yes (58 YO with alcohol and heroin detox completed today and discharged from ) Concur with findings: Yes Comments/Additional Findings: Cocaine use began at age 30 - smokes about 1 gm/ day. Marijuana use couple puffs only recently. Nicotine use began at age 15/ 16. Patient repeat U-tox today (+) for THC; MTD; BZO. States released from custodial in December 2018 and living in nursing home system. Patient was to be transferred to [facility] rehab but was refused when noted splint on (L) foot. Patient never left [facility] facility. Inpatient Rehab Admission - Rehab Decision to Admit Inpatient rehab admission?: Yes - Initial Determination Are CD services needed?: Yes Free of communicable disease: Yes Not in need of hospitalization: Yes - Rehab Admission Criteria Previous failed treatment: Yes Poor recovery environment: Yes Comorbidities: Yes Lacks judgement: No Patient is meeting Inpatient Rehab admission criteria:: Yes
[2019-04-17] MEDS ORDERED: MAGNESIUM CITRATE 300 ML BOTTLE PO PRN (18:15)
[2019-04-17] MEDS ORDERED: guaiFENesin 200 MG/10 ML 10 ML UNIT-DOSE CUPS PO PRN (18:15)
[2019-04-17] MEDS ORDERED: MENTHOL/PHENOL 1 EACH UD MM PRN (18:15)
[2019-04-17] MEDS ORDERED: MAGNESIUM HYDROX 2400MG/30ML ORAL SUSPENSION 30 ML CUP PO PRN (18:15)
[2019-04-17] MEDS ORDERED: LOPERAMIDE HCL 2 MG CAPSULE PO PRN (18:15)
[2019-04-17] MEDS ORDERED: hydrOXYzine PAMOATE 50 MG CAPSULE (FP) PO PRN (18:15)
[2019-04-17] MEDS ORDERED: P-EPHED 60MG/TRIPROLIDI 2.5MG TABLET PO PRN (18:15)
[2019-04-17] MEDS ORDERED: MAG HYDROX/AL HYDROX/SIMETH 30 ML UNIT-DOSE CUP PO PRN (18:15)
[2019-04-17] MEDS: IBUPROFEN 400 MG TABLET (FP) PO PRN (19:56)
[2019-04-17] MEDS: THIAMINE HCL 100 MG TABLET (FP) PO SCH (21:23)
[2019-04-18] MEDS ORDERED: NICOTINE POLACRILEX 2 MG GUM BUC PRN (03:20)
[2019-04-18] MEDS: ACETAMINOPHEN 325 MG TABLET (FP) PO PRN ×2 (06:36→21:41)
[2019-04-18] MEDS ORDERED: CHOLECALCIFEROL (VIT D3) 1,000 UNIT (25 MCG) TABLET PO SCH (10:00)
[2019-04-18] MEDS: IBUPROFEN 400 MG TABLET (FP) PO PRN (10:33)
[2019-04-18] MEDS: NICOTINE 14 MG/24 HOURS TOPICAL PATCH TD SCH (10:35)
[2019-04-18] MEDS: PRENATAL VITAMINS W/ FOLIC ACID TABLET (FP) PO SCH (10:35)
[2019-04-18] MEDS: MELATONIN 5 MG TABLETS PO PRN (21:40)
[2019-04-18] MEDS: THIAMINE HCL 100 MG TABLET (FP) PO SCH (21:40)
[2019-04-19] MEDS: IBUPROFEN 400 MG TABLET (FP) PO PRN ×3 (06:29→21:43)
[2019-04-19] MEDS: PRENATAL VITAMINS W/ FOLIC ACID TABLET (FP) PO SCH (10:53)
[2019-04-19] MEDS: NICOTINE 14 MG/24 HOURS TOPICAL PATCH TD SCH (10:53)
[2019-04-19] MEDS: ACETAMINOPHEN 325 MG TABLET (FP) PO PRN (17:12)
[2019-04-19] MEDS: MELATONIN 5 MG TABLETS PO PRN (21:42)
[2019-04-19] MEDS: THIAMINE HCL 100 MG TABLET (FP) PO SCH (21:42)
[2019-04-20] MEDS: IBUPROFEN 400 MG TABLET (FP) PO PRN ×2 (06:21→21:27)
[2019-04-20] MEDS: PRENATAL VITAMINS W/ FOLIC ACID TABLET (FP) PO SCH (09:00)
[2019-04-20] MEDS: NICOTINE 14 MG/24 HOURS TOPICAL PATCH TD SCH (09:00)
--- NOTE | 2019-04-20 09:17 | PN ---
[facility] Progress Note Note: Laboratory Tests 04/18/19 04/18/19 04/18/19 06:34 11:51 16:27 POC Glucometer 92 77 108 04/19/19 04/19/19 04/19/19 06:26 11:19 17:11 POC Glucometer 89 92 129 04/20/19 06:19 POC Glucometer 85 Vital Signs Temperature 98 F 04/20/19 06:49 Pulse Rate 58 L 04/20/19 06:49 Respiratory Rate 18 04/20/19 06:49 Blood Pressure 135/84 04/20/19 06:49 O2 Sat by Pulse Oximetry (%) Patient has hx of DM and treated with Metformin 850mg daily. Blood sugar range 85-129. Will change BGM to AC and D/C AC/HS. Continue to monitor clinically.
[2019-04-20] MEDS: MELATONIN 5 MG TABLETS PO PRN (21:28)
[2019-04-20] MEDS: THIAMINE HCL 100 MG TABLET (FP) PO SCH (21:28)
[2019-04-21 06:40] VITALS: BP 128/77; PULSE 54; TEMP 98.2
--- NOTE | 2019-04-21 08:22 | PN ---
[facility] Progress Note (SOAP) Subjective: Patient to be discharged today Objective: A+O x3, no neurological deficits, uses wheelchair due to injury to lower extremities, heart sounds regular, lungs clear, abd soft, non-tender. +BS 04/21/19 08:21 Laboratory Last Values POC Glucometer 79 UNITS (80-120) 04/21/19 06:13 Laboratory Tests 04/18/19 04/18/19 04/18/19 06:34 11:51 16:27 POC Glucometer 92 77 108 04/19/19 04/19/19 04/19/19 06:26 11:19 17:11 POC Glucometer 89 92 129 04/20/19 04/20/19 04/21/19 06:19 16:53 06:13 POC Glucometer 85 103 79 Vital Signs (72 hours) 04/19/19 04/19/19 04/19/19 00:30 03:30 06:51 Temperature 98.3 F Pulse Rate 56 L Respiratory 18 18 18 Rate Blood Pressure 119/68 04/20/19 04/20/19 04/20/19 00:30 03:30 06:49 Temperature 98 F Pulse Rate 58 L Respiratory 18 18 18 Rate Blood Pressure 135/84 04/21/19 04/21/19 04/21/19 00:30 03:30 06:39 Temperature 98.2 F Pulse Rate 54 L Respiratory 18 18 18 Rate Blood Pressure 128/77 04/21/19 09:09 Assessment: Medically stable for discharge Discharge Dx: Heroin Dependence ETOH dependence DM2 04/21/19 09:10 Plan: Discharge Plan: Patient is going to [facility] for medical care and aftercare. Does not need prescriptions transmitted to pharmacy, states he has enough medications at home.
[2019-04-21] MEDS: IBUPROFEN 400 MG TABLET (FP) PO PRN (08:36)
== END 2019-04-21 08:37 | disposition home or self-care (01) | DRG 772 ==
LOC: YASAS 14:22 → Y3W 18:40
PROVIDERS: ADMIT Neuromusculoskeletal Medicine & OMM; ATTEND Neuromusculoskeletal Medicine & OMM
PROC: HZ42ZZZ Group Counseling for Substance Abuse Treatment, Cognitive-Behavioral (ICD-10-PCS; principal; 2019-04-17)
DX: F11.20 Opioid dependence, uncomplicated (principal); F10.20 Alcohol dependence, uncomplicated; F13.20 Sedative, hypnotic or anxiolytic dependence, uncomplicated; F14.20 Cocaine dependence, uncomplicated; F12.20 Cannabis dependence, uncomplicated; E11.9 Type 2 diabetes mellitus without complications; Z79.84 Long term (current) use of oral hypoglycemic drugs; Z59.0 Homelessness
CPT/HCPCS: 82962; 86480

== ENCOUNTER 2024-06-01 13:31 | Inpatient (IN) | payer OTHER ==
[2024-06-01 14:27] VITALS: BMI 19.9
[2024-06-01] MEDS ORDERED: guaiFENesin 600 MG TABLET.ER (FP) PO PRN (15:01)
[2024-06-01] MEDS ORDERED: BENZONATATE 200 MG CAPSULE PO PRN (15:01)
[2024-06-01] MEDS ORDERED: POLYETHYLENE GLYCOL (HEALTHYLAX) 3350 17 GM PACKET PO PRN (15:01)
[2024-06-01] MEDS ORDERED: NICOTINE POLACRILEX 2 MG GUM BUC PRN (15:01)
[2024-06-01] MEDS ORDERED: MAG HYDROX/AL HYDROX/SIMETH 30 ML UNIT-DOSE CUP PO PRN (15:01)
[2024-06-01] MEDS ORDERED: NALOXONE HCL 0.4 MG/ML VIAL IM PRN (15:01)
[2024-06-01] MEDS ORDERED: BISMUTH SUBSALICYLATE 524 MG/30 ML PO PRN (15:01)
[2024-06-01] MEDS ORDERED: ACETAMINOPHEN 325 MG TABLET (FP) PO PRN (15:01)
[2024-06-01] MEDS ORDERED: IBUPROFEN 600 MG TABLET (FP) PO PRN (15:01)
[2024-06-01] MEDS ORDERED: LOPERAMIDE HCL 2 MG CAPSULE PO PRN (15:01)
[2024-06-01] MEDS ORDERED: NICOTINE POLACRILEX 2 MG LOZENGE BC PRN (15:01)
[2024-06-01] MEDS ORDERED: MAGNESIUM HYDROX 2400MG/30ML ORAL SUSPENSION 30 ML CUP PO PRN (15:01)
[2024-06-01] MEDS ORDERED: ONDANSETRON *ODT* 4 MG TABLET SL PRN (15:01)
[2024-06-01] MEDS ORDERED: NALOXONE (NARCAN) HCL 4 MG/0.1 ML SPRAY NS PRN (15:01)
[2024-06-01] MEDS ORDERED: DICYCLOMINE HCL 10 MG CAPSULE PO PRN (15:01)
[2024-06-01] MEDS ORDERED: BENZOCAINE/MENTHOL (CHLORASEPTIC ) LOZENGE MM PRN (15:01)
[2024-06-01] MEDS: THIAMINE 100 MG TABLET PO SCH (21:16)
[2024-06-01] MEDS: MELATONIN 5 MG TABLETS PO SCH (21:16)
[2024-06-01] MEDS: METHOCARBAMOL 500 MG TABLET PO PRN (21:16)
[2024-06-01] MEDS: hydrOXYzine PAMOATE 25 MG CAPSULE (FP) PO PRN (21:16)
[2024-06-01] MEDS: IBUPROFEN 400 MG TABLET (FP) PO PRN (21:17)
[2024-06-01] MEDS: P-EPHED 60MG/TRIPROLIDI 2.5MG TABLET PO PRN (21:18)
[2024-06-02] MEDS ORDERED: cloNIDine HCL 0.1 MG TABLET PO PRN (10:06)
[2024-06-02] MEDS: GABAPENTIN 300 MG CAPSULE PO SCH (11:06)
[2024-06-02] MEDS: CHOLECALCIFEROL (VIT D3) 1,000 UNIT (25 MCG) TABLET PO SCH (11:06)
[2024-06-02] MEDS: PRENATAL VITAMINS W/ FOLIC ACID TABLET (FP) PO SCH (11:06)
[2024-06-02] MEDS: methaDONE HCL 10 MG TABLET (FOR DETOX USE ONLY) PO ONE (11:07)
[2024-06-02 11:42] LABS: HEMATOCRIT 33.8 % (35.4-49); HEMOGLOBIN 11.1 GM/dL (11.7-16.9); MCHC 32.7 g/dl (32.0-35.9); MEAN CELL VOLUME 88.6 fl (80-96); MEAN PLT VOLUME 10.4 fl (7.5-11.1); PLATELET COUNT 154 10^3/uL (134-434); RBC 3.82 M/mm3 (4.00-5.60); RDW 15.2 % (11.9-15.9); WHITE BLOOD COUNT 3.9 K/mm3 (4.0-10.0)
[2024-06-02 11:56] LABS: POTASSIUM 4.1 mmol/L (3.5-5.1)
[2024-06-02 12:02] LABS: ALBUMIN 3.1 g/dl (3.4-5.0); BLOOD UREA NITROGEN 13.7 mg/dL (7-18); CALCIUM 9.5 mg/dL (8.5-10.1)
[2024-06-02 12:06] LABS: CREATININE 0.8 mg/dL (0.55-1.3)
[2024-06-02 12:07] LABS: BILIRUBIN,TOTAL 0.2 mg/dL (0.2-1); TOT PROT 6.3 g/dl (6.4-8.2)
[2024-06-04] MEDS: methaDONE HCL 10 MG TABLET (FOR DETOX USE ONLY) PO ONE (09:35)
[2024-06-06] MEDS: methaDONE HCL 10 MG TABLET (FOR DETOX USE ONLY) PO ONE (09:17)
[2024-06-07 09:37] VITALS: BP 148/85; PULSE 67; RESP 18; TEMP 97.7
== END 2024-06-07 09:30 | disposition home or self-care (01) | DRG 773 ==
LOC: YASAS 13:31 → Y6N 16:39
PROVIDERS: ADMIT Allergy & Immunology; ATTEND Surgery
PROC: HZ2ZZZZ Detoxification Services for Substance Abuse Treatment (ICD-10-PCS; principal; 2024-06-01)
DX: F11.23 Opioid dependence with withdrawal (principal); F14.20 Cocaine dependence, uncomplicated; F17.210 Nicotine dependence, cigarettes, uncomplicated; I10 Essential (primary) hypertension; E11.9 Type 2 diabetes mellitus without complications; R63.4 Abnormal weight loss; G62.9 Polyneuropathy, unspecified; R26.2 Difficulty in walking, not elsewhere classified; Z99.89 Dependence on other enabling machines and devices; Z91.013 Allergy to seafood; Z56.0 Unemployment, unspecified; Z59.02 Unsheltered homelessness
CPT/HCPCS: 36415; 80053; 80305; 82962; 85027; 86780; 93005; 93010